=== PATIENT | male | born 1940 | race Caucasian/White ===

== ENCOUNTER 2018-08-30 15:10 | Emergency (ER) | payer MEDICARE, SELFPAY ==
[2018-08-30] VITALS (20 sets, daily range): BP systolic 121–164; BP diastolic 48–67; PULSE 53–68; RESP 10–20; TEMP 37; O2SAT 92–97
--- NOTE | 2018-08-30 15:29 | DI.RAD_ITS ---
SYMPTOMS/DIAGNOSIS: CHEST PAIN, ? ACUTE DISEASE PA AND LATERAL CHEST: Comparison is made with September,. The heart size is within normal limits. The aorta shows calcification but appears normal in diameter. The lungs appear clear. No infiltrate, effusion or pulmonary edema is seen. There is an old right 4th rib fracture. No pneumothorax is seen. There are degenerative changes in the spine. IMPRESSION: No acute abnormality.
[2018-08-30 15:39] LABS: Abs Immature Grans 0.01 k/cumm (0.0-0.09); Absolute Basophil Count 0.03 k/cumm (0.0-0.2); Absolute Eosinophil Count 0.34 k/cumm (0.0-0.7); Absolute Lymphocyte Count 2.07 k/cumm (1.2-3.4); Absolute Monocyte Count 0.66 k/cumm (0.11-0.7); Absolute Neutrophil Count 4.69 k/cumm (1.2-6.7); Basophils % 0.4; Eosinophils % 4.4; HCT 38.8 % (40.0-50.0); HGB 12.6 g/dL (13.5-17.5); Immature Grans % 0.1; Lymphocytes % 26.5; Mean Corp. HGB Concentration 32.5 g/dL (32.0-36.0); Mean Corpuscular Hemoglobin 32.6 pg (27.0-33.0); Mean Corpuscular Volume 100.5 fL (80-95); Mean Platelet Volume 10.8 fL (8.0-11.0); Monocytes % 8.5; Neutrophils % 60.1; Platelet Count 190 x1000/uL (130-400); RBC 3.86 m/cumm (4.50-6.00); RBC Distribution Width 12.8 % (11.8-14.1)
[2018-08-30 16:01] LABS: ALT 23 U/L (12-78); AST 29 U/L (15-37); Alkaline Phosphatase 78 U/L (46-116); Anion Gap 7.4 mmol/L (3-11); BUN 19 mg/dL (7-18); Bilirubin, Total 0.6 mg/dL (0.2-1.0); CO2 29.6 mmol/L (21.0-32.0); CREATININE 1.12 mg/dL (0.70-1.30); Calcium 8.8 mg/dL (8.5-10.1); Chloride 108 mmol/L (98-107); Glucose 113 mg/dL (70-100); Potassium 4.8 mmol/L (3.5-5.1); Sodium 145 mmol/L (136-145); Total Protein 7.4 g/dL (6.4-8.2)
--- NOTE | 2018-08-30 16:08 | ED.GENADUL_ITS ---
Discharge Plan Disposition Patient Disposition: HOME Condition: Improving Discharge Details Chief Complaint: Chest Pain Clinical Impression: Rib pain on right side Primary Care Provider: Jadyn Steen ED Provider: Edith Riley Home Meds and New Rx's Prescriptions: Continued ascorbic acid (vitamin C) [Vitamin C] 1,000 MG tablet 1 tab PO DAILY RF: 0 citalopram 10 MG tablet 1 mg PO DAILY RF: 0 lisinopril 20 MG tablet 20 mg PO DAILY RF: 0 clopidogrel [Plavix] 75 MG tablet 75 mg PO DAILY RF: 0 sulfadiazine 500 MG tablet 500 mg PO DIRECTED RF: 0 aspirin [Aspir-Low] 81 MG tablet,delayed release (DR/EC) 1 tab PO DAILY RF: 0 simvastatin [Zocor] 40 MG tablet 40 mg PO HS RF: 0 folic acid 1 MG tablet 1 mg PO DAILY RF: 0 gabapentin 100 MG capsule 100 mg PO DIRECTED RF: 0 metoprolol tartrate 25 MG tablet 25 mg PO DAILY RF: 0 tamsulosin [Flomax] 0.4 mg Capsule 0.4 mg PO DAILY RF: 0 finasteride 1 mg Tablet PO DAILY RF: 0 Discharge Instructions Instructions: Chest Wall Pain (ED) Additional Instructions: Alternate ice and heat to the affected area several times daily for 20 minutes at a time. Take the Valium as needed and directed for pain and/or sleep. Call your primary care doctor tomorrow to schedule a follow-up appointment for reevaluation. Return immediately to the emergency department any acute worsening or new concerning symptoms. Discharge Data Discharge Physician: Edith Riley Medical Decision Making 78-year-old male with a history of HI, hypertension, hyperlipidemia and 2 cardiac stents who presents with right sided rib pain for the past 3 months. Pain worse with movement. Denies any other associated symptoms. Admits to frequently snowblowing, and a possible injury when putting his motorcycle on a stand recently. Patient had a complaint of chest pain on arrival so an EKG and cardiac workup was ordered considering his age and cardiac history. Patient does not have any complaint of anterior left-sided chest pain or shortness of breath but rather a localized area of right-sided rib pain. EKG notes a rate of 55, sinus bradycardia, no acute ST elevation or depression. QTc 436. QRS 100. Patient has no tenderness to palpation of his ribs but clearly has pain with moving positions in the bed which appears muscular skeletal. He has no rash or evidence of injury to his chest or ribs. He has no right upper quadrant or any other abdominal tenderness making an acute abdominal process such as cholecystitis unlikely. Differential diagnosis includes muscle strain, rib fracture. Doubt shingles as his pain is been present for 3 months and would suspect a rash which have developed by now. His history does not appear consistent with a cardiac or pulmonary etiology as his pain is worse with movement and denies any complaint of shortness of breath, fever or cough. He has no DVT/PE risk factors making PE unlikely. Labs reviewed and notes a normal white blood cell count, normal troponin. Chest x-ray reviewed and negative. Discussed with patient that it appears his pain may be musculoskeletal. Discussed obtaining dedicated rib films but he agrees that this is not necessary at this time. Patient states he feels good to go home. Will send home with 3 tabs of Valium to help with pain/turning while sleeping as he states this is when his pain is uncomfortable. He is declining any narcotic pain medication. He takes gabapentin at home for chronic back pain. Patient is instructed to call his primary care doctor for reevaluation and to return here at any time if worse. Medical Records Medical records reviewed: Yes I reviewed the patient's medical records. Imaging Data Radiologic Study: Radiologist's impression: XR Chest, 2 Views EXAM DATE/TIME: 08/30/2018 3:30 PM CLINICAL HISTORY: 78 years old, male; Pain; Chest pain; Right-sided chest pain TECHNIQUE: XR of the chest, 2 views. COMPARISON: CR CHEST 2 VIEWS PA,LAT 09/08/2010 1:36 PM FINDINGS: Lungs: Unremarkable. No consolidation. Pleural space: Unremarkable. No pleural effusion. No pneumothorax. Heart/Mediastinum: Unremarkable. No cardiomegaly. Bones/joints: Unremarkable. IMPRESSION: No acute findings. Lab Data Lab results reviewed: Yes I reviewed the patient's lab results. Laboratory Tests Range/Units 08/30/18 08/30/18 15:30 15:30 WBC (4.4-10.8) k/cumm 7.80 RBC (4.50-6.00) m/cumm 3.86 L Hgb (13.5-17.5) g/dL 12.6 L Hct (40.0-50.0) % 38.8 L MCV (80-95) fL 100.5 H MCH (27.0-33.0) pg 32.6 MCHC (32.0-36.0) g/dL 32.5 RDW (11.8-14.1) % 12.8 Plt Count (130-400) x1000/uL 190 MPV (8.0-11.0) fL 10.8 Immature Gran % 0.1 Neutrophils % 60.1 Lymphocytes % 26.5 Monocytes % 8.5 Eosinophils % 4.4 Basophils % 0.4 Absolute Neutrophils (1.2-6.7) k/cumm 4.69 Absolute Lymphocytes (1.2-3.4) k/cumm 2.07 Absolute Monocytes (0.11-0.7) k/cumm 0.66 Absolute Eosinophils (0.0-0.7) k/cumm 0.34 Absolute Basophils (0.0-0.2) k/cumm 0.03 Sodium (136-145) mmol/L 145 Potassium (3.5-5.1) mmol/L 4.8 Chloride (98-107) mmol/L 108 H Carbon Dioxide (21.0-32.0) mmol/L 29.6 Anion Gap (3-11) mmol/L 7.4 BUN (7-18) mg/dL 19 H Creatinine (0.70-1.30) mg/dL 1.12 Estimated GFR/1.73 m2 (mL/min/1.73m2) >= 60.00 Glucose (70-100) mg/dL 113 H Calcium (8.5-10.1) mg/dL 8.8 Magnesium (1.8-2.4) mg/dL 2.0 Total Bilirubin (0.2-1.0) mg/dL 0.6 AST (15-37) U/L 29 ALT (12-78) U/L 23 Alkaline Phosphatase (46-116) U/L 78 Troponin I (0.00-0.06) ng/mL < 0.02 Total Protein (6.4-8.2) g/dL 7.4 Albumin (3.4-5.0) g/dL 4.0 ECG Data Attestation: I personally reviewed and interpreted this ECG (s) as follows: Interpretation: 1516 --55, sinus bradycardia, no acute no acute?elevation or depression. QTc 436. QRS 100. HPI General Mode of arrival: ambulatory . Date/Time Provider Initiated Documentation: 08/30/18 15:27 . Limitations to Documentation: no limitations . Information obtained by: patient . HPI Narrative: Patient is a 78-year-old male with a history of depression, hypertension, myocardial infarction, hyperlipidemia and coronary artery stents who presents with right Sastry pain for the past 3 months. Patient states the pain is been daily, intermittent, worse with movement. Patient states he does a lot of snowblowing recently as well as he recently put a motorcycle on a stand and feels like he may have pulled a muscle. He denies any worsening of pain with eating, deep breath. He denies any fever, cough, rash, anterior chest pain, shortness of breath, abdominal pain, nausea, vomiting, diarrhea, urinary symptoms, recent antibiotics or recent hospital admission. Related Data Home Medications Medication Instructions Recorded Confirmed ascorbic acid (vitamin C) [Vitamin 1 tab PO DAILY 06/18/17 08/30/18 C] aspirin [Aspir-Low] 1 tab PO DAILY 06/18/17 08/30/18 citalopram 1 mg PO DAILY 06/18/17 08/30/18 clopidogrel [Plavix] 75 mg PO DAILY 06/18/17 08/30/18 folic acid 1 mg PO DAILY 06/18/17 08/30/18 gabapentin 100 mg PO DIRECTED 06/18/17 08/30/18 lisinopril 20 mg PO DAILY 06/18/17 08/30/18 metoprolol tartrate 25 mg PO DAILY 06/18/17 08/30/18 simvastatin [Zocor] 40 mg PO HS 06/18/17 08/30/18 sulfadiazine 500 mg PO DIRECTED 06/18/17 08/30/18 finasteride mg PO DAILY 08/30/18 tamsulosin [Flomax] 0.4 mg PO DAILY 08/30/18 08/30/18 Allergies Allergy/AdvReac Type Severity Reaction Status Date / Time No Known Allergies Allergy Unverified 06/18/17 16:53 General Stated Complaint: Chest Pain RUPAL: 2 Review of Systems Review of Systems All systems reviewed & are unremarkable except as noted in HPI and below Constitutional Reports as per HPI, Denies chills and Denies fever(s) Eyes Denies blurry vision ENT Denies dizziness, Denies sore throat and Denies throat swelling Cardiovascular Denies chest pain and Denies dyspnea Respiratory Denies cough and Denies dyspnea Gastrointestinal Denies abdominal pain, Denies diarrhea and Denies vomiting Genitourinary Denies hematuria and Denies dysuria Musculoskeletal Denies back pain, Denies numbness and Reports other (Right-sided rib pain) Integumentary/Breasts Denies lesions and Denies rash Neurologic Denies dizziness, Denies focal weakness and Denies numbness Allergic/Immunologic Denies throat swelling [facility] Medical History Hyperlipemia (Acute) Depression (Chronic) HTN (hypertension) (Chronic) Myocardial infarction (Chronic) Surgical History History of coronary artery stent placement (Chronic) Social History Smoking/Tobacco Use Status: Former Tobacco Use alcohol intake: current alcohol intake frequency: a few times a month substance use type: does not use Exam Const General: cooperative, healthy appearing and no acute distress HENMT Head: normal to inspection Face and sinus: normal facial exam Eyes General: appearance normal, both eyes and all related structures EOM: EOM intact bilaterally Neck Neck: normal visual inspection and No submandibular swelling Lymphatic: no lymphadenopathy noted Chest Chest: normal inspection of the chest and no tenderness Chest/axillae images: 1. Area of pain with any movement while moving on stretcher, sitting up and laying down. No tenderness to palpation, rash, erythema or trauma. Resp Effort & Inspection: normal respiratory effort and able to speak in complete sentences Auscultation: clear to auscultation bilaterally Cardio Rate: regular rate Rhythm: regular rhythm GI Inspection: normal to inspection Palpation: soft, not firm, not rigid and nontender Auscultation: normal bowel sounds Male General Exam: Yes normal external exam Skin General skin exam: no rashes or lesions noted Neuro General: alert, awake and oriented x3 Cognition: normal cognition Speech: speech normal Motor: muscle tone normal throughout Sensory Exam: no sensory deficits noted Extrem General: normal to inspection, full ROM and no edema Psych Appearance: grossly normal Mental Status: mental status grossly normal Speech and Movement: speech and movement normal Affect: normal affect Course Vital Signs Temperature 98.6 F 08/30/18 15:14 Pulse 60 08/30/18 15:14 Respiratory Rate 20 08/30/18 15:14 Blood Pressure 160/59 H 08/30/18 15:14 Pulse Oximetry 97 08/30/18 15:14 Temperature 98.6 F 08/30/18 15:14 Temperature Source Temporal Artery Scan 08/30/18 15:14 Pulse 60 08/30/18 15:14 Respiratory Rate 20 08/30/18 15:14 Respiratory Effort Non-Labored 08/30/18 15:19 Blood Pressure 160/59 H 08/30/18 15:14 Blood Pressure Position Supine 08/30/18 15:14 Pulse Oximetry 97 08/30/18 15:14 Oxygen Delivery Method Room Air 08/30/18 15:14 Oxygen Flow Rate 0 08/30/18 15:14 Pain Level 0 08/30/18 15:14 Lab/Test Results Lab/Test Results: Laboratory Tests Range/Units 08/30/18 15:30 WBC (4.4-10.8) k/cumm 7.80 RBC (4.50-6.00) m/cumm 3.86 L Hgb (13.5-17.5) g/dL 12.6 L Hct (40.0-50.0) % 38.8 L MCV (80-95) fL 100.5 H MCH (27.0-33.0) pg 32.6 MCHC (32.0-36.0) g/dL 32.5 RDW (11.8-14.1) % 12.8 Plt Count (130-400) x1000/uL 190 MPV (8.0-11.0) fL 10.8 Immature Gran % 0.1 Neutrophils % 60.1 Lymphocytes % 26.5 Monocytes % 8.5 Eosinophils % 4.4 Basophils % 0.4 Absolute Neutrophils (1.2-6.7) k/cumm 4.69 Absolute Lymphocytes (1.2-3.4) k/cumm 2.07 Absolute Monocytes (0.11-0.7) k/cumm 0.66 Absolute Eosinophils (0.0-0.7) k/cumm 0.34 Absolute Basophils (0.0-0.2) k/cumm 0.03
[2018-08-30 16:14] LABS: Troponin I < 0.02 ng/mL (0.00-0.06)
--- NOTE | 2018-08-30 16:17 | DI.VRAD_ITS ---
EXAM: XR Chest, 2 Views EXAM DATE/TIME: 08/30/2018 3:30 PM CLINICAL HISTORY: 78 years old, male; Pain; Chest pain; Right-sided chest pain TECHNIQUE: XR of the chest, 2 views. COMPARISON: CR CHEST 2 VIEWS PA,LAT 09/08/2010 1:36 PM FINDINGS: Lungs: Unremarkable. No consolidation. Pleural space: Unremarkable. No pleural effusion. No pneumothorax. Heart/Mediastinum: Unremarkable. No cardiomegaly. Bones/joints: Unremarkable. IMPRESSION: No acute findings. Dictated and Authenticated by: Arnie Antonio MD. Ordering:THOMAS Sharma MD
[2018-08-30] MEDS: Diazepam 5 MG TAB 15 MG PO (17:25)
== END 2018-08-30 17:35 | disposition home or self-care (01) ==
PROVIDERS: Emergency Provider Physician Assistant; PCP Family Medicine
DX: R07.81 Pleurodynia (principal); I10 Essential (primary) hypertension; I25.2 Old myocardial infarction; Z95.5 Presence of coronary angioplasty implant and graft
CPT/HCPCS: 36415; 80053; 93005; 99285; 71046; 83735; 84484; 85025; 93010

== ENCOUNTER 2018-09-27 11:55 | Emergency (ER) | payer MEDICARE, SELFPAY ==
[2018-09-27] VITALS (20 sets, daily range): BP systolic 97–192; BP diastolic 37–101; PULSE 55–67; RESP 14–25; O2SAT 96–100
--- NOTE | 2018-09-27 12:14 | DI.CT_ITS ---
SYMPTOMS/DIAGNOSIS: S/P TRAUMA, ? SHOULDER/RIB FX, ABD INJURY CT SCAN OF THE ABDOMEN AND PELVIS AND CT RECONSTRUCTIONS OF THE LUMBAR SPINE: The liver is normal in size with normal enhancement. No laceration is seen. The portal, superior mesenteric and splenic veins are patent. The gallbladder is negative. There is no biliary ductal dilatation. The pancreas and peripancreatic soft tissues are unremarkable. The spleen is normal in size with normal enhancement. No evidence of a laceration is seen. The adrenal glands are unremarkable. The kidneys show normal and symmetric enhancement. There are a few tiny hypodensities seen within the left kidney. They are too small for further characterization but they likely reflect small cysts. The urinary bladder is intact. The reproductive organs are unremarkable. There is patient motion artifact present. There is atherosclerosis of the abdominal aorta but no aneurysmal dilatation is seen. No significant abdominal or pelvic adenopathy, ascites or pneumoperitoneum is present. There are degenerative changes seen in the lumbar spine. Ankylosis of the left sacroiliac joint is noted. CT reconstructions of the lumbar spine were obtained. There are no acute fractures or subluxations seen in the lumbar spine. The bowel shows no evidence of obstruction or inflammation. There is diverticulosis seen in the colon. No evidence of an acute appendicitis are present. IMPRESSION: 1. No evidence of an acute intra-abdominal or pelvic abnormality. 2. No evidence of a lumbar spine fracture. CT SCAN OF THE CHEST AND CT RECONSTRUCTIONS OF THE THORACIC SPINE: There is atherosclerosis of the thoracic aorta but no aneurysmal dilatation is present. The heart appears mildly enlarged. No significant pericardial effusion is seen. Coronary artery calcifications are present. There is patient motion artifact. No significant thoracic adenopathy is seen. No pleural effusion is present. Pulmonary emphysematous changes are present. There is no evidence of a pneumothorax. No focal consolidating infiltrates are seen. The tracheobronchial tree is unremarkable. Mild dependent atelectatic changes are seen in the lung bases. CT reconstructions of the thoracic spine were obtained. There are degenerative changes seen at multiple levels of the thoracic spine. No acute fractures or subluxations in the thoracic spine are identified. No displaced rib fractures are seen. IMPRESSION: 1. No acute thoracic abnormality. 2. No evidence of thoracic spine fracture. The findings were discussed with the emergency department on the date of the examination.
--- NOTE | 2018-09-27 12:14 | DI.CT_ITS ---
SYMPTOMS/DIAGNOSIS: S/P FALL, ? ACUTE PROCESS CT BRAIN: Noncontrast examination. No priors. The ventricles and sulci are consistent with the patient's age. There are areas of decreased attenuation in the white matter consistent with small vessel ischemic disease. 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 The ventricles are intact. The basilar cisterns are patent. No acute midline shift or mass effect is identified. There is a small hyperdense extra-axial collection adjacent to the left occipital lobe (series 2, image 24). It measures 1.5 cm transverse by 0.5 cm AP. This may represent a small extra-axial hemorrhage. No other evidence of intracranial hemorrhage is seen. The calvarium is intact. No skull fracture is seen. There is mild mucosal thickening seen in the right maxillary sinus. The remaining visualized paranasal sinuses are clear. No fluid levels are seen. The mastoid air cells are well pneumatized. IMPRESSION: 1. 1.5 cm extra-axial hyperdense area adjacent to the left occipital lobe. This may represent a small subdural hematoma. 2. No evidence of intraparenchymal hemorrhage or skull fracture. CT SCAN OF THE CERVICAL SPINE: Multiple contiguous axial images of the cervical spine were obtained. Sagittal and coronal reformatted images were evaluated on the [employer] workstation. There are no priors for comparison. There is some patient motion artifact present. No acute fractures or subluxations in the cervical spine are identified. There are moderate degenerative changes present throughout the cervical spine. No significant prevertebral soft tissue swelling is seen. IMPRESSION: No acute fractures or subluxations in the cervical spine. The findings were discussed with the emergency department on the date of the examination.
--- NOTE | 2018-09-27 12:14 | DI.RAD_ITS ---
SYMPTOMS/DIAGNOSIS: S/P FALL, ? ACUTE FRACTURE LEFT HUMERUS: Three views. There is some motion artifact particularly proximally. No definite acute fracture or dislocation is seen. Well corticated osseous densities are seen adjacent to both the medial and lateral epicondyles. No radiopaque foreign bodies are seen in the soft tissues. IMPRESSION: No definite acute fracture or dislocation of the left humerus. RIGHT HUMERUS: Three views. No acute fracture or dislocation is seen. Portions of the proximal humerus are less well visualized due to overlying soft tissue. No radiopaque foreign bodies are seen in the soft tissues. IMPRESSION: No definite acute fracture or dislocation.
[2018-09-27 12:27] LABS: Abs Immature Grans 0.01 k/cumm (0.0-0.09); Absolute Basophil Count 0.02 k/cumm (0.0-0.2); Absolute Eosinophil Count 0.23 k/cumm (0.0-0.7); Absolute Lymphocyte Count 1.83 k/cumm (1.2-3.4); Absolute Monocyte Count 0.73 k/cumm (0.11-0.7); Absolute Neutrophil Count 5.34 k/cumm (1.2-6.7); Basophils % 0.2; Eosinophils % 2.8; HCT 40.4 % (40.0-50.0); HGB 13.2 g/dL (13.5-17.5); Immature Grans % 0.1; Lymphocytes % 22.4; Mean Corp. HGB Concentration 32.7 g/dL (32.0-36.0); Mean Corpuscular Hemoglobin 32.4 pg (27.0-33.0); Mean Corpuscular Volume 99.3 fL (80-95); Monocytes % 8.9; Neutrophils % 65.6; Platelet Count 189 x1000/uL (130-400); RBC 4.07 m/cumm (4.50-6.00); RBC Distribution Width 12.5 % (11.8-14.1); White Blood Cell Count 8.16 k/cumm (4.4-10.8)
[2018-09-27 12:44] LABS: ALT 23 U/L (12-78); AST 24 U/L (15-37); Albumin 4.1 g/dL (3.4-5.0); Alkaline Phosphatase 77 U/L (46-116); BUN 20 mg/dL (7-18); Bilirubin, Total 0.6 mg/dL (0.2-1.0); CREATININE 1.31 mg/dL (0.70-1.30); Calcium 9.3 mg/dL (8.5-10.1); Chloride 107 mmol/L (98-107); Estimated GFR 52.92 (mL/min/1.73m2); Glucose 115 mg/dL (70-100); Magnesium 1.7 mg/dL (1.8-2.4); Potassium 4.3 mmol/L (3.5-5.1); Sodium 143 mmol/L (136-145); Total Protein 7.4 g/dL (6.4-8.2)
[2018-09-27 12:45] LABS: Troponin I < 0.02 ng/mL (0.00-0.06)
[2018-09-27] MEDS: Omnipaque 350 MG/ML 100 ML BTL IJ (13:04)
[2018-09-27] MEDS: Normal Saline 250 ML 500 ML IV (13:13)
[2018-09-27 13:20] LABS: Bilirubin Negative (Negative); Blood Negative (Negative); Clarity Clear; Glucose Negative (Negative); Ketones Trace mg/dL (Negative); Leukocyte Esterase Negative (Negative); Nitrite Negative (Negative); Urobilinogen 0.2 EU/dL (Up TO 0.2)
--- NOTE | 2018-09-27 13:21 | W.ED.GENAD ---
Discharge Plan Disposition Patient Dis[facility] Condition: Serious Discharge Details Chief Complaint: Trauma Clinical Impression: Acute subdural hematoma, Fall, Bilateral shoulder pain, Bilateral arm pain Reason For Visit: RODGER Primary Care Provider: Jadyn Steen ED Provider: Edith Riley Home Meds and New Rx's Prescriptions: No Action ascorbic acid (vitamin C) [Vitamin C] 1,000 MG tablet 1 tab PO DAILY RF: 0 citalopram 10 MG tablet 1 mg PO DAILY RF: 0 lisinopril 20 MG tablet 20 mg PO DAILY RF: 0 clopidogrel [Plavix] 75 MG tablet 75 mg PO DAILY RF: 0 sulfadiazine 500 MG tablet 500 mg PO DIRECTED RF: 0 aspirin [Aspir-Low] 81 MG tablet,delayed release (DR/EC) 1 tab PO DAILY RF: 0 simvastatin [Zocor] 40 MG tablet 40 mg PO HS RF: 0 folic acid 1 MG tablet 1 mg PO DAILY RF: 0 gabapentin 100 MG capsule 100 mg PO DIRECTED RF: 0 metoprolol tartrate 25 MG tablet 25 mg PO DAILY RF: 0 tamsulosin [Flomax] 0.4 mg Capsule 0.4 mg PO DAILY RF: 0 finasteride 1 mg Tablet PO DAILY RF: 0 Discharge Data Discharge Date/Time-TO BE ENTERED AT DEPARTURE: 09/27/18 14:15 Medical Decision Making 78-year-old male with a history of hypertension, high cholesterol, PR with one cardiac stent who presents to the ED status post fall. Patient does not recall the events of the fall but EMS states that a family member called for evaluation after a fall. Patient was found in bed at home. Caregiver for who has dementia who arrived to ED states that patient states that he was walking in the garage and fell. She states patient takes care of his and that he is normally alert and oriented x3. Patient appears anxious and is complaining of pain in his bilateral clavicles, shoulders and upper arms. He denies any chest pain, abdominal pain, neck pain, back pain or headache. He has tenderness to palpation of his bilateral clavicles and bilateral upper arms but no obvious deformity noted. Neurovascularly intact. C-spine/T-spine/L-spine nontender. He has a superficial posterior occipital laceration, superficial, sutures or morelia not indicated. His chest and abdomen is nontender. Will place an IV, bolus IV fluids, labs, urinalysis, CT head/C-spine/T-spine/L-spine/chest/abdomen and pelvis as well as bilateral humerus x-rays. 1300 --labs and imaging reviewed. Labs unremarkable. Troponin negative. Urinalysis notes 3-5 WBCs negative leukocyte esterase and negative nitrate, urine culture sent. CT head notes a 1.5 cm subdural hematoma. Remainder of CT imaging negative. 1315 --d/w [facility] Trauma - accepts pt for transfer. Informed that patient is seeming to be anxious and complaining of pain in his upper arms. Agreeable with plan for dose of 1-2 mg morphine. Patient is the caregiver for his at home who has dementia. There is no family or friends available. This was discussed with care management they have arranged for caregivers to stay with at home. [facility] transfer center was notified that we were unable to confirm patient's tetanus status here and he did not receive a tetanus shot here. They will notify the ED. Medical Records Medical records reviewed: Yes I reviewed the patient's medical records. Imaging Data Radiologic Study: Radiologist's impression: CT BRAIN: Noncontrast examination. No priors. The ventricles and sulci are consistent with the patient's age. There are areas of decreased attenuation in the white matter consistent with small vessel ischemic disease. 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 The ventricles are intact. The basilar cisterns are patent. No acute midline shift or mass effect is identified. There is a small hyperdense extra-axial collection adjacent to the left occipital lobe (series 2, image 24). It measures 1.5 cm transverse by 0.5 cm AP. This may represent a small extra-axial hemorrhage. No other evidence of intracranial hemorrhage is seen. The calvarium is intact. No skull fracture is seen. There is mild mucosal thickening seen in the right maxillary sinus. The remaining visualized paranasal sinuses are clear. No fluid levels are seen. The mastoid air cells are well pneumatized. IMPRESSION: 1. 1.5 cm extra-axial hyperdense area adjacent to the left occipital lobe. This may represent a small subdural hematoma. 2. No evidence of intraparenchymal hemorrhage or skull fracture. CT SCAN OF THE CERVICAL SPINE: Multiple contiguous axial images of the cervical spine were obtained. Sagittal and coronal reformatted images were evaluated on the Siemens workstation. There are no priors for comparison. There is some patient motion artifact present. No acute fractures or subluxations in the cervical spine are identified. There are moderate degenerative changes present throughout the cervical spine. No significant prevertebral soft tissue swelling is seen. IMPRESSION: No acute fractures or subluxations in the cervical spine. Patient Name: LOC STEWART #: [id number]: ER Ordering Provider: Edith Riley DOAccount #: [id number]: PRE ER Primary Care Provider: Jadyn Steen M.D.Date of Exam: 09/27/18Sex: M : 1940Age: 78 CT SCAN OF THE ABDOMEN AND PELVIS AND CT RECONSTRUCTIONS OF THE LUMBAR SPINE: The liver is normal in size with normal enhancement. No laceration is seen. The portal, superior mesenteric and splenic veins are patent. The gallbladder is negative. There is no biliary ductal dilatation. The pancreas and peripancreatic soft tissues are unremarkable. The spleen is normal in size with normal enhancement. No evidence of a laceration is seen. The adrenal glands are unremarkable. The kidneys show normal and symmetric enhancement. There are a few tiny hypodensities seen within the left kidney. They are too small for further characterization but they likely reflect small cysts. The urinary bladder is intact. The reproductive organs are unremarkable. There is patient motion artifact present. There is atherosclerosis of the abdominal aorta but no aneurysmal dilatation is seen. No significant abdominal or pelvic adenopathy, ascites or pneumoperitoneum is present. There are degenerative changes seen in the lumbar spine. Ankylosis of the left sacroiliac joint is noted. CT reconstructions of the lumbar spine were obtained. There are no acute fractures or subluxations seen in the lumbar spine. The bowel shows no evidence of obstruction or inflammation. There is diverticulosis seen in the colon. No evidence of an acute appendicitis are present. IMPRESSION: 1. No evidence of an acute intra-abdominal or pelvic abnormality. 2. No evidence of a lumbar spine fracture. CT SCAN OF THE CHEST AND CT RECONSTRUCTIONS OF THE THORACIC SPINE: There is atherosclerosis of the thoracic aorta but no aneurysmal dilatation is present. The heart appears mildly enlarged. No significant pericardial effusion is seen. Coronary artery calcifications are present. There is patient motion artifact. No significant thoracic adenopathy is seen. No pleural effusion is present. Pulmonary emphysematous changes are present. There is no evidence of a pneumothorax. No focal consolidating infiltrates are seen. The tracheobronchial tree is unremarkable. Mild dependent atelectatic changes are seen in the lung bases. CT reconstructions of the thoracic spine were obtained. There are degenerative changes seen at multiple levels of the thoracic spine. No acute fractures or subluxations in the thoracic spine are identified. No displaced rib fractures are seen. IMPRESSION: 1. No acute thoracic abnormality. 2. No evidence of thoracic spine fracture. LEFT HUMERUS: Three views. There is some motion artifact particularly proximally. No definite acute fracture or dislocation is seen. Well corticated osseous densities are seen adjacent to both the medial and lateral epicondyles. No radiopaque foreign bodies are seen in the soft tissues. IMPRESSION: No definite acute fracture or dislocation of the left humerus. RIGHT HUMERUS: Three views. No acute fracture or dislocation is seen. Portions of the proximal humerus are less well visualized due to overlying soft tissue. No radiopaque foreign bodies are seen in the soft tissues. IMPRESSION: No definite acute fracture or dislocation. Lab Data Lab results reviewed: Yes I reviewed the patient's lab results. 09/27/18 13:14 Urine - Reflex from Ua Urine Culture - Pending Laboratory Tests Range/Units 09/27/18 09/27/18 09/27/18 12:15 12:15 13:14 WBC (4.4-10.8) k/cumm 8.16 RBC (4.50-6.00) m/cumm 4.07 L Hgb (13.5-17.5) g/dL 13.2 L Hct (40.0-50.0) % 40.4 MCV (80-95) fL 99.3 H MCH (27.0-33.0) pg 32.4 MCHC (32.0-36.0) g/dL 32.7 RDW (11.8-14.1) % 12.5 Plt Count (130-400) x1000/uL 189 MPV (8.0-11.0) fL 11.0 Immature Gran % 0.1 Neutrophils % 65.6 Lymphocytes % 22.4 Monocytes % 8.9 Eosinophils % 2.8 Basophils % 0.2 Absolute Neutrophils (1.2-6.7) k/cumm 5.34 Absolute Lymphocytes (1.2-3.4) k/cumm 1.83 Absolute Monocytes (0.11-0.7) k/cumm 0.73 H Absolute Eosinophils (0.0-0.7) k/cumm 0.23 Absolute Basophils (0.0-0.2) k/cumm 0.02 Sodium (136-145) mmol/L 143 Potassium (3.5-5.1) mmol/L 4.3 Chloride (98-107) mmol/L 107 Carbon Dioxide (21.0-32.0) mmol/L 25.0 Anion Gap (3-11) mmol/L 11.0 BUN (7-18) mg/dL 20 H Creatinine (0.70-1.30) mg/dL 1.31 H Estimated GFR/1.73 m2 (mL/min/1.73m2) 52.92 Glucose (70-100) mg/dL 115 H Calcium (8.5-10.1) mg/dL 9.3 Magnesium (1.8-2.4) mg/dL 1.7 L Total Bilirubin (0.2-1.0) mg/dL 0.6 AST (15-37) U/L 24 ALT (12-78) U/L 23 Alkaline Phosphatase (46-116) U/L 77 Troponin I (0.00-0.06) ng/mL < 0.02 Total Protein (6.4-8.2) g/dL 7.4 Albumin (3.4-5.0) g/dL 4.1 Urine Color (Yellow) Yellow Urine Clarity Clear Urine pH (5-8) 7.0 Ur Specific [place] (1.005-1.025) 1.020 Urine Protein (Negative) mg/dL 30 H Urine Ketones (Negative) mg/dL Trace H Urine Blood (Negative) Negative Urine Nitrite (Negative) Negative Urine Bilirubin (Negative) Negative Urine Urobilinogen (Up TO 0.2) EU/dL 0.2 Ur Leukocyte Esterase (Negative) Negative Urine RBC (0-2) Negative Urine WBC (0-5) HPF 3-5 Ur Epithelial Cells (Negative) HPF Rare Urine Crystals (Negative) HPF Negative Urine Bacteria (Negative) HPF Moderate Urine Casts (Negative) LPF 0-2 hyaline Urine Mucus (Negative) Trace Urine Other (Negative) Few renal Ur Culture Indicated? Yes Urine Glucose (Negative) mg/dL Negative ECG Data Attestation: I personally reviewed and interpreted this ECG (s) as follows: Interpretation: Rate of 53, sinus bradycardia, PVCs. T wave inversion in V2 and V3. QTc 449. QRS 102. HPI General Mode of arrival: EMS. Date/Time Provider Initiated Documentation: 09/27/18 12:10. Limitations to Documentation: no limitations. Information obtained by: patient. HPI Narrative: Patient is a 78-year-old male with history hypertension, high cholesterol, PR with one cardiac stent who presents status post fall. Patient is unable to recall any events of the fall. EMS states that patient lives at home with his who has dementia. Apparently patient may have fallen while he was walking and then walked back up to his bed and laid down. EMS states they found him laying in his bed. Patient is complaining of pain in both of his arms extending from his clavicles, shoulders upper arms and forearms. He had complained of chest pain for EMS but denies this in the ER. He denies any abdominal pain, neck pain, back pain or hip pain. Related Data Home Medications Medication Instructions Recorded Confirmed ascorbic acid (vitamin C) [Vitamin 1 tab PO DAILY 06/18/17 09/27/18 C] aspirin [Aspir-Low] 1 tab PO DAILY 06/18/17 09/27/18 citalopram 1 mg PO DAILY 06/18/17 09/27/18 clopidogrel [Plavix] 75 mg PO DAILY 06/18/17 09/27/18 folic acid 1 mg PO DAILY 06/18/17 09/27/18 gabapentin 100 mg PO DIRECTED 06/18/17 09/27/18 lisinopril 20 mg PO DAILY 06/18/17 09/27/18 metoprolol tartrate 25 mg PO DAILY 06/18/17 09/27/18 simvastatin [Zocor] 40 mg PO HS 06/18/17 09/27/18 sulfadiazine 500 mg PO DIRECTED 06/18/17 08/30/18 finasteride mg PO DAILY 08/30/18 tamsulosin [Flomax] 0.4 mg PO DAILY 08/30/18 09/27/18 Allergies Allergy/AdvReac Type Severity Reaction Status Date / Time No Known Allergies Allergy Unverified 06/18/17 16:53 General Stated Complaint: Trauma RUPAL: 2 Review of Systems Review of Systems All systems reviewed & are unremarkable except as noted in HPI and below Constitutional Reports as per HPI, Denies chills and Denies fever(s) Eyes Denies blurry vision ENT Denies dizziness, Denies sore throat and Denies throat swelling Cardiovascular Denies chest pain and Denies dyspnea Respiratory Denies cough and Denies dyspnea Gastrointestinal Denies abdominal pain, Denies diarrhea and Denies vomiting Genitourinary Denies hematuria and Denies dysuria Musculoskeletal Denies back pain and Denies numbness Integumentary/Breasts Denies lesions and Denies rash Neurologic Denies dizziness, Denies focal weakness and Denies numbness Allergic/Immunologic Denies throat swelling PFS Social History Smoking and Tabacco status: Former Tobacco Use alcohol intake: current alcohol intake frequency: a few times a month substance use type: does not use Exam Const General: cooperative and anxious Orientation: alert and awake HENMT Head: normal to inspection Head images: 1. 1.5 cm superficial abrasion to right posterior occipital head Ears: hearing grossly normal bilaterally, external ears normal and TM's normal bilaterally General nose exam: external nose normal Face and sinus: normal facial exam Mouth: oral mucosae normal Teeth and gingiva: dentition normal Throat: posterior oropharynx normal Eyes General: appearance normal, both eyes and all related structures Eyelids: eyelids normal Pupils: PERRL EOM: EOM intact bilaterally Neck Neck: normal visual inspection Lymphatic: no lymphadenopathy noted Chest Chest: normal inspection of the chest, normal palpation of entire chest wall and no tenderness Resp Effort & Inspection: normal respiratory effort and able to speak in complete sentences Auscultation: clear to auscultation bilaterally Cardio Rate: regular rate Rhythm: regular rhythm GI Inspection: normal to inspection Palpation: soft, not firm, no guarding, no hepatosplenomegaly, no masses and nontender Auscultation: normal bowel sounds Back/Spine/Pelvis Cervical Spine: No cervical spinal tenderness Thoracic/Lumbar Spine: No thoracic spinal tenderness and No lumbar spinal tenderness Pelvis: no pain with anterior-posterior compression Skin General skin exam: no rashes or lesions noted Neuro General: alert, awake, oriented x3, moves all extremities, no meningeal signs, no focal motor deficits and other (repeating words and phrases) Cranial Nerves: CN's II-XI intact bilaterally Cognition: normal cognition Speech: speech normal Gait: normal gait Motor: muscle tone normal throughout and strength 5/5 throughout Sensory Exam: no sensory deficits noted Extrem Other: Tenderness and pain in bilateral shoulders and upper arms with range of motion. No deformity, edema, ecchymosis, erythema or evidence of trauma. Normal range of motion bilateral hips, knees, ankles and feet without evidence of trauma. Neurovascularly intact. Psych Appearance: grossly normal Mental Status: mental status grossly normal and other Speech and Movement: speech and movement normal Mood: other Affect: anxious affect Thought Process: normal Course Vital Signs Pulse 67 09/27/18 12:06 Respiratory Rate 22 09/27/18 12:06 Blood Pressure 185/71 H 09/27/18 12:06 Pulse Oximetry 99 09/27/18 12:06 Pulse 63 09/27/18 13:02 Respiratory Rate 20 09/27/18 13:02 Respiratory Effort Short of Breath 09/27/18 12:13 Blood Pressure 167/71 H 09/27/18 13:02 Blood Pressure Position Supine 09/27/18 12:06 Pulse Oximetry 97 09/27/18 13:02 Oxygen Delivery Method Room Air 09/27/18 13:02 Oxygen Flow Rate 0 09/27/18 13:02 Lab/Test Results Lab/Test Results: Laboratory Tests Range/Units 09/27/18 09/27/18 12:15 12:15 WBC (4.4-10.8) k/cumm 8.16 RBC (4.50-6.00) m/cumm 4.07 L Hgb (13.5-17.5) g/dL 13.2 L Hct (40.0-50.0) % 40.4 MCV (80-95) fL 99.3 H MCH (27.0-33.0) pg 32.4 MCHC (32.0-36.0) g/dL 32.7 RDW (11.8-14.1) % 12.5 Plt Count (130-400) x1000/uL 189 MPV (8.0-11.0) fL 11.0 Immature Gran % 0.1 Neutrophils % 65.6 Lymphocytes % 22.4 Monocytes % 8.9 Eosinophils % 2.8 Basophils % 0.2 Absolute Neutrophils (1.2-6.7) k/cumm 5.34 Absolute Lymphocytes (1.2-3.4) k/cumm 1.83 Absolute Monocytes (0.11-0.7) k/cumm 0.73 H Absolute Eosinophils (0.0-0.7) k/cumm 0.23 Absolute Basophils (0.0-0.2) k/cumm 0.02 Sodium (136-145) mmol/L 143 Potassium (3.5-5.1) mmol/L 4.3 Chloride (98-107) mmol/L 107 Carbon Dioxide (21.0-32.0) mmol/L 25.0 Anion Gap (3-11) mmol/L 11.0 BUN (7-18) mg/dL 20 H Creatinine (0.70-1.30) mg/dL 1.31 H Estimated GFR/1.73 m2 (mL/min/1.73m2) 52.92 Glucose (70-100) mg/dL 115 H Calcium (8.5-10.1) mg/dL 9.3 Magnesium (1.8-2.4) mg/dL 1.7 L Total Bilirubin (0.2-1.0) mg/dL 0.6 AST (15-37) U/L 24 ALT (12-78) U/L 23 Alkaline Phosphatase (46-116) U/L 77 Troponin I (0.00-0.06) ng/mL < 0.02 Total Protein (6.4-8.2) g/dL 7.4 Albumin (3.4-5.0) g/dL 4.1
[2018-09-27] MEDS: MORPHine 10 MG/ML VIAL 2 MG IVP (13:24)
--- NOTE | 2018-09-27 13:30 | ED.GENADUL_ITS ---
Discharge Plan Disposition Patient Disposition: [facility] Condition: Serious Discharge Details Chief Complaint: Trauma Clinical Impression: Acute subdural hematoma, Fall, Bilateral shoulder pain, Bilateral arm pain Reason For Visit: RODGER Primary Care Provider: Jadyn Steen ED Provider: Edith Riley Home Meds and New Rx's Prescriptions: No Action ascorbic acid (vitamin C) [Vitamin C] 1,000 MG tablet 1 tab PO DAILY RF: 0 citalopram 10 MG tablet 1 mg PO DAILY RF: 0 lisinopril 20 MG tablet 20 mg PO DAILY RF: 0 clopidogrel [Plavix] 75 MG tablet 75 mg PO DAILY RF: 0 sulfadiazine 500 MG tablet 500 mg PO DIRECTED RF: 0 aspirin [Aspir-Low] 81 MG tablet,delayed release (DR/EC) 1 tab PO DAILY RF: 0 simvastatin [Zocor] 40 MG tablet 40 mg PO HS RF: 0 folic acid 1 MG tablet 1 mg PO DAILY RF: 0 gabapentin 100 MG capsule 100 mg PO DIRECTED RF: 0 metoprolol tartrate 25 MG tablet 25 mg PO DAILY RF: 0 tamsulosin [Flomax] 0.4 mg Capsule 0.4 mg PO DAILY RF: 0 finasteride 1 mg Tablet PO DAILY RF: 0 Discharge Data Discharge Date/Time-TO BE ENTERED AT DEPARTURE: 09/27/18 14:15 Medical Decision Making 78-year-old male with a history of hypertension, high cholesterol, LA with one cardiac stent who presents to the ED status post fall. Patient does not recall the events of the fall but EMS states that a family member called for evaluation after a fall. Patient was found in bed at home. Caregiver for who has dementia who arrived to ED states that patient states that he was walking in the garage and fell. She states patient takes care of his and that he is normally alert and oriented x3. Patient appears anxious and is complaining of pain in his bilateral clavicles, shoulders and upper arms. He denies any chest pain, abdominal pain, neck pain, back pain or headache. He has tenderness to palpation of his bilateral clavicles and bilateral upper arms but no obvious deformity noted. Neurovascularly intact. C-spine/T-spine/L-spine nontender. He has a superficial posterior occipital laceration, superficial, sutures or morelia not indicated. His chest and abdomen is nontender. Will place an IV, bolus IV fluids, labs, urinalysis, CT head/C -spine/T-spine/L-spine/chest/abdomen and pelvis as well as bilateral humerus x- rays. 1300 --labs and imaging reviewed. Labs unremarkable. Troponin negative. Urinalysis notes 3-5 WBCs negative leukocyte esterase and negative nitrate, urine culture sent. CT head notes a 1.5 cm subdural hematoma. Remainder of CT imaging negative. 1315 --d/w [facility] - accepts pt for transfer. Informed that patient is seeming to be anxious and complaining of pain in his upper arms. Agreeable with plan for dose of 1-2 mg morphine. Patient is the caregiver for his at home who has dementia. There is no family or friends available. This was discussed with care management they have arranged for caregivers to stay with at home. [facility] transfer center was notified that we were unable to confirm patient's tetanus status here and he did not receive a tetanus shot here. They will no tify the ED. Medical Records Medical records reviewed: Yes I reviewed the patient's medical records. Imaging Data Radiologic Study: Radiologist's impression: CT BRAIN: Noncontrast examination. No priors. The ventricles and sulci are consistent with the patient's age. There are areas of decreased attenuation in the white matter consistent with small vessel ischemic disease. 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 The ventricles are intact. The basilar cisterns are patent. No acute midline shift or mass effect is identified. There is a small hyperdense extra-axial collection adjacent to the left occipital lobe (series 2, image 24). It measures 1.5 cm transverse by 0.5 cm AP. This may represent a s mall extra-axial hemorrhage. No other evidence of intracranial hemorrhage is seen. The calvarium is intact. No skull fracture is seen. There is mild mucosal thickening seen in the right maxillary sinus. The remaining visualized paranasal sinuses are clear. No fluid levels are seen. The mastoid air cells are well pneumatized. IMPRESSION: 1. 1.5 cm extra-axial hyperdense area adjacent to the left occipital lobe. This may represent a small subdural hematoma. 2. No evidence of intraparenchymal hemorrhage or skull fracture. CT SCAN OF THE CERVICAL SPINE: Multiple contiguous axial images of the cervical spine were obtained. Sagittal and coronal reformatted images were evaluated on the Siemens workstation. There are no priors for comparison. There is some patient motion artifact present. No acute fractures or subluxations in the cervical spine are identified. There are moderate degenerative changes present throughout the cervical spine. No significant prevertebral soft tissue swelling is seen. IMPRESSION: No acute fractures or subluxations in the cervical spine. Patient Name: LOC STEWART #: [id number]: ER Ordering Provider: Edith Riley DOAccount #: [id number]: PRE ER Primary Care Provider: Jadyn Steen M.D.Date of Exam: 09/27/18Sex: M : 1940Age: 78 CT SCAN OF THE ABDOMEN AND PELVIS AND CT RECONSTRUCTIONS OF THE LUMBAR SPINE: The liver is normal in size with normal enhancement. No laceration is seen. The portal, superior mesenteric and splenic veins are patent. The gallbladder is negative. There is no biliary ductal dilatation. The pancreas and pe ripancreatic soft tissues are unremarkable. The spleen is normal in size with normal enhancement. No evidence of a laceration is seen. The adrenal glands are unremarkable. The kidneys show normal and symmetric enhancement. There are a few tiny hypodensities seen within the left kidney. They are too small for further characterization but they likely reflect small cysts. The urinary bladder is intact. The reproductive organs are unremarkable. There is patient motion artifact present. There is atherosclerosis of the abdominal aorta but no aneurysmal dilatation is seen. No significant abdominal or pelvic adenopathy, ascites or pneumoperitoneum is present. There are degenerative changes seen in the lumbar spine. Ankylosis of the left sacroiliac joint is noted. CT reconstructions of the lumbar spine were obtained. There are no acute fractures or subluxations seen in the lumbar spine. The bowel shows no evidence of obstruction or inflammation. There is diverticulosis seen in the colon. No evidence of an acute appendicitis are present. IMPRESSION: 1. No evidence of an acute intra-abdominal or pelvic abnormality. 2. No evidence of a lumbar spine fracture. CT SCAN OF THE CHEST AND CT RECONSTRUCTIONS OF THE THORACIC SPINE: There is atherosclerosis of the thoracic aorta but no aneurysmal dilatation is present. The heart appears mildly enlarged. No significant pericardial effusion is seen. Coronary artery calcifications are present. There is patient motion artifact. No significant thoracic adenopathy is seen. No pleural effusion is present. Pulmonary emphysematous changes are present. There is no evidence of a pneumothorax. No focal consolidating infiltrates are seen. The tracheobronchial tree is unremarkable. Mild dependent atelectatic changes are seen in the lung bases. CT reconstructions of the thoracic spine were obtained. There are degenerative changes seen at multiple levels of the thoracic spine. No acute fractures or subluxations in the thoracic spine are identified. No displaced rib fractures are seen. IMPRESSION: 1. No acute thoracic abnormality. 2. No evidence of thoracic spine fracture. LEFT HUMERUS: Three views. There is some motion artifact particularly proximally. No definite acute fracture or dislocation is seen. Well corticated osseous densities are seen adjacent to both the medial and lateral epicondyles. No radiopaque foreign bodies are seen in the soft tissues. IMPRESSION: No definite acute fracture or dislocation of the left humerus. RIGHT HUMERUS: Three views. No acute fracture or dislocation is seen. Portions of the proximal humerus are less well visualized due to overlying soft tissue. No radiopaque foreign bodies are seen in the soft tissues. IMPRESSION: No definite acute fracture or dislocation. Lab Data Lab results reviewed: Yes I reviewed the patient's lab results. 09/27/18 13:14 Urine - Reflex from Ua Urine Culture - Pending Laboratory Tests Range/Units 09/27/18 09/27/18 09/27/18 12:15 12:15 13:14 WBC (4.4-10.8) k/cumm 8.16 RBC (4.50-6.00) m/cumm 4.07 L Hgb (13.5-17.5) g/dL 13.2 L Hct (40.0-50.0) % 40.4 MCV (80-95) fL 99.3 H MCH (27.0-33.0) pg 32.4 MCHC (32.0-36.0) g/dL 32.7 RDW (11.8-14.1) % 12.5 Plt Count (130-400) x1000/uL 189 MPV (8.0-11.0) fL 11.0 Immature Gran % 0.1 Neutrophils % 65.6 Lymphocytes % 22.4 Monocytes % 8.9 Eosinophils % 2.8 Basophils % 0.2 Absolute Neutrophils (1.2-6.7) k/cumm 5.34 Absolute Lymphocytes (1.2-3.4) k/cumm 1.83 Absolute Monocytes (0.11-0.7) k/cumm 0.73 H Absolute Eosinophils (0.0-0.7) k/cumm 0.23 Absolute Basophils (0.0-0.2) k/cumm 0.02 Sodium (136-145) mmol/L 143 Potassium (3.5-5.1) mmol/L 4.3 Chloride (98-107) mmol/L 107 Carbon Dioxide (21.0-32.0) mmol/L 25.0 Anion Gap (3-11) mmol/L 11.0 BUN (7-18) mg/dL 20 H Creatinine (0.70-1.30) mg/dL 1.31 H Estimated GFR/1.73 m2 (mL/min/1.73m2) 52.92 Glucose (70-100) mg/dL 115 H Calcium (8.5-10.1) mg/dL 9.3 Magnesium (1.8-2.4) mg/dL 1.7 L Total Bilirubin (0.2-1.0) mg/dL 0.6 AST (15-37) U/L 24 ALT (12-78) U/L 23 Alkaline Phosphatase (46-116) U/L 77 Troponin I (0.00-0.06) ng/mL < 0.02 Total Protein (6.4-8.2) g/dL 7.4 Albumin (3.4-5.0) g/dL 4.1 Urine Color (Yellow) Yellow Urine Clarity Clear Urine pH (5-8) 7.0 Ur Specific Allen (1.005-1.025) 1.020 Urine Protein (Negative) mg/dL 30 H Urine Ketones (Negative) mg/dL Trace H Urine Blood (Negative) Negative Urine Nitrite (Negative) Negative Urine Bilirubin (Negative) Negative Urine Urobilinogen (Up TO 0.2) EU/dL 0.2 Ur Leukocyte Esterase (Negative) Negative Urine RBC (0-2) Negative Urine WBC (0-5) HPF 3-5 Ur Epithelial Cells (Negative) HPF Rare Urine Crystals (Negative) HPF Negative Urine Bacteria (Negative) HPF Moderate Urine Casts (Negative) LPF 0-2 hyaline Urine Mucus (Negative) Trace Urine Other (Negative) Few renal Ur Culture Indicated? Yes Urine Glucose (Negative) mg/dL Negative ECG Data Attestation: I personally reviewed and interpreted this ECG (s) as follows: Interpretation: Rate of 53, sinus bradycardia, PVCs. T wave inversion in V2 and V3. QTc 449. QRS 102. HPI General Mode of arrival: EMS . Date/Time Provider Initiated Documentation: 09/27/18 12:10 . Limitations to Documentation: no limitations . Information obtained by: patient . HPI Narrative: Patient is a 78-year-old male with history hypertension, high cholesterol, LA with one cardiac stent who presents status post fall. Patient is unable to recall any events of the fall. EMS states that patient lives at home with his who has dementia. Apparently patient may have fallen while he was walking and then walked back up to his bed and laid down. EMS states they found him laying in his bed. Patient is complaining of pain in both of his arms extending from his clavicles, shoulders upper arms and forearms. He had complained of chest pain for EMS but denies this in the ER. He denies any abdominal pain, neck pain, back pain or hip pain. Related Data Home Medications Medication Instructions Recorded Confirmed ascorbic acid (vitamin C) [Vitamin 1 tab PO DAILY 06/18/17 09/27/18 C] aspirin [Aspir-Low] 1 tab PO DAILY 06/18/17 09/27/18 citalopram 1 mg PO DAILY 06/18/17 09/27/18 clopidogrel [Plavix] 75 mg PO DAILY 06/18/17 09/27/18 folic acid 1 mg PO DAILY 06/18/17 09/27/18 gabapentin 100 mg PO DIRECTED 06/18/17 09/27/18 lisinopril 20 mg PO DAILY 06/18/17 09/27/18 metoprolol tartrate 25 mg PO DAILY 06/18/17 09/27/18 simvastatin [Zocor] 40 mg PO HS 06/18/17 09/27/18 sulfadiazine 500 mg PO DIRECTED 06/18/17 08/30/18 finasteride mg PO DAILY 08/30/18 tamsulosin [Flomax] 0.4 mg PO DAILY 08/30/18 09/27/18 Allergies Allergy/AdvReac Type Severity Reaction Status Date / Time No Known Allergies Allergy Unverified 11/17/17 16:53 General Stated Complaint: Trauma RUPAL: 2 Review of Systems Review of Systems All systems reviewed & are unremarkable except as noted in HPI and below Constitutional Reports as per HPI, Denies chills and Denies fever(s) Eyes Denies blurry vision ENT Denies dizziness, Denies sore throat and Denies throat swelling Cardiovascular Denies chest pain and Denies dyspnea Respiratory Denies cough and Denies dyspnea Gastrointestinal Denies abdominal pain, Denies diarrhea and Denies vomiting Genitourinary Denies hematuria and Denies dysuria Musculoskeletal Denies back pain and Denies numbness Integumentary/Breasts Denies lesions and Denies rash Neurologic Denies dizziness, Denies focal weakness and Denies numbness Allergic/Immunologic Denies throat swelling PFSH Social History Smoking and Tabacco status: Former Tobacco Use alcohol intake: current alcohol intake frequency: a few times a month substance use type: does not use Exam Const General: cooperative and anxious Orientation: alert and awake HENMT Head: normal to inspection Head images: 1. 1.5 cm superficial abrasion to right posterior occipital head Ears: hearing grossly normal bilaterally, external ears normal and TM's normal bilaterally General nose exam: external nose normal Face and sinus: normal facial exam Mouth: oral mucosae normal Teeth and gingiva: dentition normal Throat: posterior oropharynx normal Eyes General: appearance normal, both eyes and all related structures Eyelids: eyelids normal Pupils: PERRL EOM: EOM intact bilaterally Neck Neck: normal visual inspection Lymphatic: no lymphadenopathy noted Chest Chest: normal inspection of the chest, normal palpation of entire chest wall and no tenderness Resp Effort & Inspection: normal respiratory effort and able to speak in complete sentences Auscultation: clear to auscultation bilaterally Cardio Rate: regular rate Rhythm: regular rhythm GI Inspection: normal to inspection Palpation: soft, not firm, no guarding, no hepatosplenomegaly, no masses and nontender Auscultation: normal bowel sounds Back/Spine/Pelvis Cervical Spine: No cervical spinal tenderness Thoracic/Lumbar Spine: No thoracic spinal tenderness and No lumbar spinal tenderness Pelvis: no pain with anterior-posterior compression Skin General skin exam: no rashes or lesions noted Neuro General: alert, awake, oriented x3, moves all extremities, no meningeal signs, no focal motor deficits and other (repeating words and phrases) Cranial Nerves: CN's II-XI intact bilaterally Cognition: normal cognition Speech: speech normal Gait: normal gait Motor: muscle tone normal throughout and strength 5/5 throughout Sensory Exam: no sensory deficits noted Extrem Other: Tenderness and pain in bilateral shoulders and upper arms with range of motion. No deformity, edema, ecchymosis, erythema or evidence of trauma. Normal range of motion bilateral hips, knees, ankles and feet without evidence of trauma. Neurovascularly intact. Psych Appearance: grossly normal Mental Status: mental status grossly normal and other Speech and Movement: speech and movement normal Mood: other Affect: anxious affect Thought Process: normal Course Vital Signs Pulse 67 09/27/18 12:06 Respiratory Rate 22 09/27/18 12:06 Blood Pressure 185/71 H 09/27/18 12:06 Pulse Oximetry 99 09/27/18 12:06 Pulse 63 09/27/18 13:02 Respiratory Rate 20 09/27/18 13:02 Respiratory Effort Short of Breath 09/27/18 12:13 Blood Pressure 167/71 H 09/27/18 13:02 Blood Pressure Position Supine 09/27/18 12:06 Pulse Oximetry 97 09/27/18 13:02 Oxygen Delivery Method Room Air 09/27/18 13:02 Oxygen Flow Rate 0 09/27/18 13:02 Lab/Test Results Lab/Test Results: Laboratory Tests Range/Units 09/27/18 09/27/18 12:15 12:15 WBC (4.4-10.8) k/cumm 8.16 RBC (4.50-6.00) m/cumm 4.07 L Hgb (13.5-17.5) g/dL 13.2 L Hct (40.0-50.0) % 40.4 MCV (80-95) fL 99.3 H MCH (27.0-33.0) pg 32.4 MCHC (32.0-36.0) g/dL 32.7 RDW (11.8-14.1) % 12.5 Plt Count (130-400) x1000/uL 189 MPV (8.0-11.0) fL 11.0 Immature Gran % 0.1 Neutrophils % 65.6 Lymphocytes % 22.4 Monocytes % 8.9 Eosinophils % 2.8 Basophils % 0.2 Absolute Neutrophils (1.2-6.7) k/cumm 5.34 Absolute Lymphocytes (1.2-3.4) k/cumm 1.83 Absolute Monocytes (0.11-0.7) k/cumm 0.73 H Absolute Eosinophils (0.0-0.7) k/cumm 0.23 Absolute Basophils (0.0-0.2) k/cumm 0.02 Sodium (136-145) mmol/L 143 Potassium (3.5-5.1) mmol/L 4.3 Chloride (98-107) mmol/L 107 Carbon Dioxide (21.0-32.0) mmol/L 25.0 Anion Gap (3-11) mmol/L 11.0 BUN (7-18) mg/dL 20 H Creatinine (0.70-1.30) mg/dL 1.31 H Estimated GFR/1.73 m2 (mL/min/1.73m2) 52.92 Glucose (70-100) mg/dL 115 H Calcium (8.5-10.1) mg/dL 9.3 Magnesium (1.8-2.4) mg/dL 1.7 L Total Bilirubin (0.2-1.0) mg/dL 0.6 AST (15-37) U/L 24 ALT (12-78) U/L 23 Alkaline Phosphatase (46-116) U/L 77 Troponin I (0.00-0.06) ng/mL < 0.02 Total Protein (6.4-8.2) g/dL 7.4 Albumin (3.4-5.0) g/dL 4.1
[2018-09-27 13:33] LABS: Bacteria Moderate HPF (Negative); Casts 0-2 Hyaline LPF (Negative); Crystals Negative HPF (Negative); Epithelial Cells Rare HPF (Negative); Mucus Trace (Negative); Other Cells Few Renal (Negative); RBC Negative (0-2)
[2018-09-27 13:34] LABS: C & S Indicated? Yes
--- NOTE | 2018-09-27 13:43 | NUR.NOTE ---
Nursing Note: Pt completed with diagnostic imaging. and friend in room. case managers Marcie in speaking with family and friend. pt awake and alert, dose not recall details of fall. no n/v. siu cath placed. small laceration note to right side of scalp, bleeding controlled. will continue to monitor.
--- NOTE | 2018-09-27 14:07 | PDOC.ERCMPRO ---
Care Management Progress Note 09/27-Dr. Riley requested assistance with Blake and his souse Halima Garcia. Blake fell in his garage this morning, per Dr. Riley patient has a subdural hematoma (Please see provider note). Met with Blake, Halima and caregiver Emily Aberdeen and friend Maryjo Hernández. Halima has dementia and can not be left alone. Discussed caregivers with Blake and he states that he pays Emily and another caregiver Wednesday-Wednesday for three hours a day. Friend Maryjo is here as well and will assist with Halima's care. Blake states that he went into his garage this morning and slipped on the ice. Blake states he does not remember the fall. According to Emily, who was at the home at the time of the fall, came back into the house and layed down in his bed. Emily called the ambulance. Blake states that he is having a hard time remembering the incident and having difficulty remembering names and words. Blake tells this CM that he does not have any children but his has three. Daughter Saira lives in [facility]; son Hudson lives in [facility]; and son Chito lives in [facility]. Emily and Maryjo will stay with Halima. Maryjo has already spoken to farhan Chávez. Maryjo will update Saira and between Halima's children and the caregivers, someone will be able to stay with Halima. Guy is here to transport Blake to [facility]. Halima has had the chance to kiss and say goodbye to Blake. Caregivers were given a bag with Blake's clothes and belt. There is no wallet here, Blake states it is home in his green jacket. Caregivers will make arrangements for Blake at [facility] and to bring Halima for visit if needed. Tresa ROSS and Dr. Riley aware of the above.
--- NOTE | 2018-09-27 14:19 | CMPROGNOTE_ITS ---
Care Management Progress Note 09/27-Dr. Riley requested assistance with Blake and his souse Halima Garcia. Blake fell in his garage this morning, per Dr. Riley patient has a subdural hematoma (Please see provider note). Met with Blake, Halima and caregiver Emily Hudson and friend Maryjo Hernández. Halima has dementia and can not be left alone. Discussed caregivers with Blake and he states that he pays Emily and another caregiver Wednesday- Wednesday for three hours a day. Friend Maryjo is here as well and will assist with Halima's care. Blake states that he went into his garage this morning and slipped on the ice. Blake states he does not remember the fall. According to Emily, who was at the home at the time of the fall, came back into the house and layed down in his bed. Emily called the ambulance. Blake states that he is having a hard time remembering the incident and having difficulty remembering names and words. Blake tells this CM that he does not have any children but his has three. Daughter Saira lives in [facility]; son Hudson lives in [facility]; and son Chito lives in [facility]. Emily and Maryjo will stay with Halima. Maryjo has already spoken to farhan Chávez. Maryjo will update Saira and between Halima's children and the caregivers, someone will be able to stay with Halima. Guy is here to transport Blake to [facility]. Halima has had the chance to kiss and say goodbye to Blake. Caregivers were given a bag with Blake's clothes and belt. There is no wallet here, Blake states it is home in his green jacket. Caregivers will make arrangements for Blake at [facility] and to bring Halima for visit if needed. Tresa ROSS and Dr. Riley aware of the above.
== END 2018-09-27 14:15 | disposition short-term general hospital (02) ==
PROVIDERS: Emergency Provider Physician Assistant; PCP Family Medicine
DX: S06.5X0A Traumatic subdural hemorrhage without loss of consciousness, initial encounter (principal); R00.1 Bradycardia, unspecified; S00.01XA Abrasion of scalp, initial encounter; M25.511 Pain in right shoulder; M79.601 Pain in right arm; M79.602 Pain in left arm; W01.0XXA Fall on same level from slipping, tripping and stumbling without subsequent striking against object, initial encounter; I10 Essential (primary) hypertension; M25.512 Pain in left shoulder
CPT/HCPCS: 36415; 74177; 80053; 93005; 96361; 96374; 99285; 70450; 71260; 72125; 73060; 81003; 81015; 83735; 84484; 85025; 87086; 93010; 99284; J2270; J3490

== ENCOUNTER 2023-11-16 14:07 | Emergency (ER) | payer OTHER, SELFPAY ==
[2023-11-16] VITALS (21 sets, daily range): BP systolic 142–201; BP diastolic 55–105; PULSE 55–85; RESP 10–22; TEMP 36.8; O2SAT 92–96
--- NOTE | 2023-11-16 14:10 | W.ED.GENAD ---
Discharge Plan Disposition Patient Disposition: Home Discharge Details Clinical Impression: Dizziness Primary Care Provider: Vera Stover ED Provider: Yon Leung Home Meds and New Rx's Prescriptions: Continued ascorbic acid (vitamin C) [Vitamin C] 1,000 MG tablet 1 tab PO DAILY citalopram 10 MG tablet 40 mg PO DAILY lisinopril 20 MG tablet 10 mg PO DAILY aspirin [Aspir-Low] 81 MG tablet,delayed release (DR/EC) 1 tab PO DAILY folic acid 1 MG tablet 1 mg PO DAILY gabapentin 100 MG capsule 300 mg PO DIRECTED Patient Comments: 4 am and 4 pm metoprolol tartrate 25 MG tablet 25 mg PO DAILY tamsulosin [Flomax] 0.4 mg Capsule 0.4 mg PO DAILY finasteride 1 mg Tablet 5 mg PO DAILY atorvastatin 80 mg tablet 80 mg PO DAILY levetiracetam 500 mg tablet 500 mg PO DAILY Discharge Instructions Instructions: Dizziness (ED) Additional Instructions: You are seen in the emergency department for your dizziness. Your MRI showed no sign of any stroke. Your blood work showed no sign of heart attack. Please return to the emergency department if you develop recurrent dizziness develop any chest pain or shortness of breath. Otherwise please follow-up with your primary care provider later this week. Discharge Data Discharge Date/Time-TO BE ENTERED AT DEPARTURE: 11/16/23 18:47 HPI General Date/Time Provider Initiated Documentation: 11/16/23 14:10. HPI Narrative: MDM This is a dizzy normothermic and not tachycardic 83-year-old male with hypertension coronary artery disease and presentation concerning for posterior circulation CVA given positive Romberg dizziness and nausea versus ACS versus acute electrolyte abnormality. Fingerstick blood glucose 103. No nystagmus so I did not complete a hints exam. Will review dry CT head to ensure that there is not a bleed prior to completing a tele neuroconsult. No pain out of proportion to suggest necrotizing soft tissue infection. No recent chiropractic manipulation to suggest increased risk for cervical arterial dissection so did not obtain a CT angiogram. I was not suspicious for large vessel occlusion so I did not think that the patient would be a thrombectomy candidate as he had no visual changes no aphasia nor neglect so I did not obtain a CT angiogram of his head. No tearing chest pain so doubt aortic dissection. No cough to suggest pneumonia. No dysuria no frequency so doubt UTI. No abdominal pain so doubt intra-abdominal infection. I considered PE however the patient is not tachycardic does not have chest pain or shortness of breath so my suspicion is low for PE. I considered sepsis however the patient is normothermic denies cough or urinary symptoms and is neither tachycardic nor hypotensive so I did not feel that he required lactate, empiric antibiotics or blood cultures. No trauma so doubt pneumothorax. 2:[address] head negative for any acute bleed. 3:57 PM Negative troponin. Reassuring normal TSH. No PERCY. No anion gap. No acute electrolyte abnormalities. Normal reassuring magnesium. Chest x-ray read as no acute findings. Mild normocytic anemia similar to prior. No leukocytosis. No thrombocytopenia. 5:40 PM I spoke with Dr. Lara from neurology who had assessed the patient. She felt that the patient had a negative MRI. Patient will be appropriate for empiric trial of discharge with expectant outpatient management. Patient was also noted to be orthostatic. MRI read as negative. I met with the patient he felt improved. Repeat troponin pending. Patient reported being anxious and wanted to go home. He is not to take any medications this evening. He does have an elevated blood pressure. Will reassess following repeat troponin. 10:45 PM Repeat troponin negative. Patient discharged with outpatient follow-up. We discussed return to the ED for any syncope chest pain nausea or vomiting. He understood his return indications. Chronic conditions affecting the care of the patient: BPH History obtained from an outside historian: N/A External record review: [facility] EMR Diagnostic interpretations performed by me: Per my independent interpretation chest x-ray shows: No acute cardiopulmonary process. Per my independent interpretation EKG shows: Narrow complex normal sinus rhythm at a rate of 65. Normal axis. Intervals within normal limits. No ST segment abnormalities beyond artifact in leads I and II in the first QRS complex. T wave flattening in aVL. Left lateral chest T wave flattening. No acute injury pattern. No prior for comparison. Medications: 250 cc bolus Social determinants of health affecting disposition: N/A Management discussed with: Neurology [facility] Treatment/interventions considered: N/A Response to therapies provided: N/A HPI This is an 83-year-old male with a history of coronary artery disease, hypertension, hyperlipidemia arrived to the emergency department via private vehicle in the setting of dizziness and nausea. Patient reports that he fell to his knees after suddenly feeling dizzy and lightheaded earlier today while visiting his at a jail facility. He did not lose consciousness. He did not hit his head. He takes aspirin but is no longer on clopidogrel as he is remote prior history of subdural. He notes that he felt diaphoretic during his episode earlier today. He has no history of vertigo. He was in his usual state of health earlier today and denies vomiting chest pain shortness of breath and abdominal pain. He rarely drinks ethanol but denies routine tobacco and illicits. He does have remote history of tobacco use and uses inhalers for COPD. Exam General: Well-appearing in no acute distress speaking in complete sentences. Head: Normocephalic, atraumatic. Eye:[Pupils equal, round reactive to light.] Extraocular eye movements intact. No conjunctival injection. No scleral icterus. Ear, nose, mouth, throat: Grossly normal inspection. Normal voice, handling secretions normally. Neck: Trachea midline. Cardiovascular: Well-perfused distal extremities. Regular rate and rhythm Respiratory: Nonlabored respiration. Clear lungs bilaterally Gastrointestinal: Nondistended abdomen. Soft nontender. Musculoskeletal: No edema. Moving all 4 extremities spontaneously. Skin: Normal for age and race, grossly normal temperature and turgor. No acute rash. Neurologic: Alert and appropriate, no apparent acute deficits. GCS 15. Positive Romberg. No nystagmus. Mild left-sided dysdiadochokinesia. No pronator drift. No neglect. No aphasia nor dysarthria. 5 out of 5 bilateral upper and lower extremity strength. Please see tele neuro note for complete NIH stroke scale. Psychiatric: Mood and manner are appropriate. Grooming and personal hygiene are appropriate. Related Data Home Medications Medication Instructions Recorded Confirmed ascorbic acid (vitamin C) 1,000 mg 1 tab PO DAILY 06/18/17 11/16/23 tablet (Vitamin C) aspirin 81 mg tablet,delayed 1 tab PO DAILY 06/18/17 11/16/23 release (Aspir-Low) citalopram 10 mg tablet 40 mg PO DAILY 06/18/17 11/16/23 folic acid 1 mg tablet 1 mg PO DAILY 06/18/17 11/16/23 gabapentin 100 mg capsule 300 mg PO DIRECTED 06/18/17 11/16/23 lisinopril 20 mg tablet 10 mg PO DAILY 06/18/17 11/16/23 metoprolol tartrate 25 mg tablet 25 mg PO DAILY 06/18/17 11/16/23 finasteride 1 mg tablet 5 mg PO DAILY 08/30/18 11/16/23 tamsulosin 0.4 mg capsule (Flomax) 0.4 mg PO DAILY 08/30/18 11/16/23 atorvastatin 80 mg tablet 80 mg PO DAILY 11/16/23 11/16/23 levetiracetam 500 mg tablet 500 mg PO DAILY 11/16/23 11/16/23 Allergies Allergy/AdvReac Type Severity Reaction Status Date / Time No Known Allergies Allergy Unverified 11/16/23 14:18 General RUPAL: 2 Medical Decision Making Quality:SDOH Health Related Social Needs: No Data to Display PFSH All Active Problems (Updated 11/16/23 @ 18:01 by Yon Leung MD) Dizziness (Acute) Medical History (Updated 11/16/23 @ 18:01 by Yon Leung MD) Depression Hyperlipemia HTN (hypertension) Myocardial infarction Surgical History History of coronary artery stent placement Social History Smoking/Tobacco Use Status: Former Tobacco Use Smoking risk assessment performed?: Yes Alcohol Intake: current Alcohol Intake frequency: a few times a month Drug use: Never Substance use type: does not use Housing: apartment Do you feel safe at home: Yes Do you feel safe in your relationship?: Yes
--- NOTE | 2023-11-16 14:15 | DI.RAD_ITS ---
Exam(s) XR CHEST 1V IN DI DEPT EXAM: XR CHEST 1V IN DI DEPT CLINICAL HISTORY: Dizziness TECHNIQUE: 2D digital imaging was performed. COMPARISON: CT CT CHEST/ABD/PEL W from 09/27/2018 FINDINGS: LUNGS: Clear. No pleural abnormality seen. HEART: Enlarged. AORTA: Normal diameter. Calcification at arch. BONES: Spine mostly obscured. Soft tissues: Unremarkable. IMPRESSION: No acute findings. DATA REPOSITORY: RADIATION DOSE DELIVERED:
--- NOTE | 2023-11-16 14:15 | DI.CT_ITS ---
Exam(s) CT HEAD - STROKE PROTOCOL EXAM: CT HEAD - STROKE PROTOCOL CLINICAL HISTORY: Dizziness. TECHNIQUE: Imaging Protocol: Axial computed tomography images with coronal and sagittal reformatted images were created and reviewed COMPARISON: CT CT HEAD CERVICAL SPINE WO from 09/27/2018 FINDINGS: Ventricles and Extra axial spaces: Normal in size and morphology for the patient's age. Hemorrhage: None. Cerebral parenchyma: No evidence of acute infarct or mass. Mild atrophy. Stable white matter changes small vessel disease. Old lacunar infarct in the left basal ganglia. Midline shift: None. Brainstem/Cerebellum: Normal. Calvarium: Normal. Visualized Paranasal sinuses:Clear. Mastoids: Clear. Soft Tissues: Unremarkable. ORBITS: Unremarkable. PITUITARY: Not enlarged. IMPRESSION: No acute intracranial process. Findings called to Dr. Leung of the emergency department. RADIATION DOSE DELIVERED: 858.98mGy.cm Total DLP DATA REPOSITORY: All CT scans at this facility are submitted to the National Radiology Data Registry (NRDR) Dose Index Registry (DIR) with the [employer] (ACR). RADIATION OPTIMIZATION: All CT scans at this facility use at least one of these dose optimization te chniques: automated exposure control; mA and/or kV adjustment per patient size (includes targeted exa ms where dose is matched to clinical indication); or iterative reconstruction.
--- NOTE | 2023-11-16 14:15 | RT.EKG_ITS ---
APPROVED REPORT Exam: Resting ECG Reason for Exam: Fall Patient Location: E HR:65 bpm ECG Measurements Heart Rate 65 AXIS CA 176 P 44 QRSd 96 QRS 13 QT 454 T 104 QTc 473 Conclusion Sinus rhythm...normal P axis, V-rate 60- 99 Inferior infarct, old...Q >35mS, II III aVF Nonspecific T abnormalities, lateral leads...T <-0.10mV, I aVL V5 V6 Narrow complex normal sinus rhythm at a rate of 65. Normal axis. Intervals within normal limits. N o ST segment abnormalities beyond artifact in leads I and II in the first QRS complex. T wave flatte mable in aVL. Left lateral chest T wave flattening. No acute injury pattern. No prior for compariso n.
--- NOTE | 2023-11-16 14:30 | DI.MRI_ITS ---
Exam(s) MR BRAIN WO EXAM: MR BRAIN WO CLINICAL HISTORY: Dizziness TECHNIQUE: Multiplanar multisequence MRI of the brain was performed. COMPARISON: CT CT HEAD - STROKE PROTOCOL from 11/16/2023 FINDINGS: The examination is limited due to patient motion artifact. VENTRICLES AND EXTRA AXIAL SPACES: Normal in size and morphology for the patient's age. MIDLINE SHIFT: None. CEREBRAL PARENCHYMA: No focus of restricted diffusion to suggest acute infarct. No space-occupying le yolanda identified. There are multiple areas of hyperintense signal seen on the FLAIR images in the whit e matter consistent with chronic microvascular ischemic disease. There is a left chronic basal gangl iar lacunar infarct. HEMORRHAGE: None. BRAINSTEM/CEREBELLUM: Normal. CALVARIUM: Normal. VISUALIZED PARANASAL SINUSES/MASTOIDS:Clear. [place]: Normal flow void. PITUITARY GLAND: Unremarkable. OTHER FINDINGS: None. IMPRESSION: 1. The examination is limited due to patient motion artifact. 2. No evidence of an acute territorial infarct. 3. Age-related cerebral atrophy and chronic microvascular ischemic disease. 4. 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 DATA REPOSITORY:
[2023-11-16 15:20] LABS: Abs Immature Grans 0.04 10^3/uL (0.0-0.06); Absolute Basophil Count 0.04 10^3/uL (0.0-0.2); Absolute Eosinophil Count 0.07 10^3/uL (0.0-0.7); Absolute Lymphocyte Count 1.33 10^3/uL (1.2-3.4); Absolute Monocyte Count 0.56 10^3/uL (0.1-0.8); Basophils % 0.4; Eosinophils % 0.7; HCT 38.6 % (40.0-50.0); HGB 13.1 g/dL (13.5-17.5); Immature Grans % 0.4; Lymphocytes % 13.2; MCH 31.4 pg (27.0-33.0); MCHC 33.9 % (32.0-36.0); MCV 93 fL (80-95); MPV 10.4 fL (8.0-11.0); Monocytes % 5.6; Neutrophils % 79.7; Platelet Count 199 10^3/uL (130-400); RBC 4.17 10^6/uL (4.36-5.78); RDW 13.2 % (11.8-14.1); RDW-SD 44.9 fL; WBC 10.04 10^3/uL (4.4-10.8)
[2023-11-16 15:24] LABS: Anion Gap 8.5 mmol/L (3-11); BUN 22 mg/dL (7-18); CO2 25.5 mmol/L (21.0-32.0); CREATININE 1.1 mg/dL (0.70-1.30); Chloride 108 mmol/L (98-107); Estimated GFR 66.61 (mL/min/1.73m2); Glucose 105 mg/dL (74-106); Potassium 4.9 mmol/L (3.5-5.1); Sodium 142 mmol/L (136-145); Troponin I < 50 ng/L (< or =60)
[2023-11-16 15:31] LABS: Magnesium 2.1 mg/dL (1.8-2.4); TSH (W/Ref FT4) 2.35 uIU/mL (0.36-3.74)
[2023-11-16] MEDS: Normal Saline 500 ML 250 ML IV (16:47)
[2023-11-16 16:51] LABS: Bilirubin Negative (Negative); Blood Negative (Negative); Clarity Clear (Clear); Glucose Negative (Negative); Ketones Negative (Negative); Leukocyte Esterase Negative (Negative); Nitrite Negative (Negative); Specific Gravity 1.015 (1.005-1.025); Urobilinogen 0.2 mg/dL (Up to 0.2); pH 5.5 (5-8)
[2023-11-16 18:22] LABS: Troponin I < 50 ng/L (< or =60)
== END 2023-11-16 18:47 | disposition home or self-care (01) ==
PROVIDERS: Emergency Provider Emergency Medicine; PCP Physician Assistant
DX: R42 Dizziness and giddiness (principal); I25.10 Atherosclerotic heart disease of native coronary artery without angina pectoris; I25.2 Old myocardial infarction; I10 Essential (primary) hypertension; E78.5 Hyperlipidemia, unspecified; J44.9 Chronic obstructive pulmonary disease, unspecified; Z95.5 Presence of coronary angioplasty implant and graft; Z79.82 Long term (current) use of aspirin; Z87.891 Personal history of nicotine dependence
CPT/HCPCS: 36415; 80048; 82962; 93005; 96360; 96361; 99285; 70450; 70551; 71045; 81003; 83735; 84443; 84484; 85025; 93010; 99284

== ENCOUNTER 2024-05-09 17:33 | Emergency (ER) | payer OTHER, SELFPAY ==
[2024-05-09 17:37] VITALS: BP 151/69; PULSE 65; RESP 12; TEMP 36.6; O2SAT 94
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
== END 2024-05-09 18:52 | disposition home or self-care (01) ==
PROVIDERS: Emergency Provider Emergency Medicine; PCP Physician Assistant
DX: S62.643A Nondisplaced fracture of proximal phalanx of left middle finger, initial encounter for closed fracture; V29.408A Other motorcycle driver injured in collision with unspecified motor vehicles in traffic accident, initial encounter
CPT/HCPCS: 26720; 99283; 73140

== ENCOUNTER 2024-08-08 13:51 | Emergency (ER) | payer OTHER, SELFPAY ==
[2024-08-08] VITALS (33 sets, daily range): BP systolic 94–147; BP diastolic 40–98; PULSE 60–108; RESP 10–25; TEMP 36.4; O2SAT 94–100
--- NOTE | 2024-08-08 13:45 | RT.EKG_ITS ---
APPROVED REPORT Exam: Resting ECG Reason for Exam: dizzy Patient Location: E HR:71 bpm ECG Measurements Heart Rate 71 AXIS MO 155 P 62 QRSd 109 QRS 49 QT 435 T 58 QTc 475 Conclusion Sinus rhythm...normal P axis, V-rate 60- 99 Inferior infarct, old...Q >35mS, II III aVF No STEMI
--- NOTE | 2024-08-08 14:30 | DI.CT_ITS ---
Exam(s) CT HEAD WO EXAM: CT HEAD WO CLINICAL HISTORY: vertigo. TECHNIQUE: Imaging Protocol: Axial computed tomography images with coronal and sagittal reformatted images were created and reviewed COMPARISON: CT CT HEAD - STROKE PROTOCOL from 11/16/2023 FINDINGS: The examination is limited due to patient motion artifact. Ventricles and Extra axial spaces: Normal in size and morphology for the patient's age. Hemorrhage: None. Cerebral parenchyma: There are areas of decreased attenuation in the white matter consistent with chr onic microvascular ischemic disease. There is again seen an old lacunar infarct in the left basal ga nglia. No acute territorial infarct is seen. No acute mass effect is present. Midline shift: None. Brainstem/Cerebellum: Normal. Calvarium: Normal. Visualized Paranasal sinuses/Mastoids: Clear. Soft Tissues: Unremarkable. IMPRESSION: No acute intracranial process. RADIATION DOSE DELIVERED: 880.18mGy.cm Total DLP DATA REPOSITORY: All CT scans at this facility are submitted to the National Radiology Data Registry (NRDR) Dose Index Registry (DIR) with the [employer] (ACR). RADIATION OPTIMIZATION: All CT scans at this facility use at least one of these dose optimization te chniques: automated exposure control; mA and/or kV adjustment per patient size (includes targeted exa ms where dose is matched to clinical indication); or iterative reconstruction.
[2024-08-08 15:03] LABS: Abs Immature Grans 0.04 10^3/uL (0.0-0.06); Absolute Basophil Count 0.04 10^3/uL (0.0-0.2); Absolute Lymphocyte Count 2.48 10^3/uL (1.2-3.4); Absolute Monocyte Count 0.93 10^3/uL (0.1-0.8); Basophils % 0.4 %; Eosinophils % 0.9 %; HCT 42.4 % (40.0-50.0); HGB 14.4 g/dL (13.5-17.5); Immature Grans % 0.4 %; Lymphocytes % 22.7 %; MCH 32.3 pg (27.0-33.0); MCV 95 fL (80-95); MPV 10.5 fL (8.0-11.0); Monocytes % 8.5 %; Neutrophils % 67.1 %; Platelet Count 262 10^3/uL (130-400); RBC 4.46 10^6/uL (4.36-5.78); RDW 12.1 % (11.8-14.1); RDW-SD 42.1 fL; WBC 10.94 10^3/uL (4.4-10.8)
[2024-08-08 15:04] LABS: Absolute Neutrophil Count 7.34 10^3/uL (1.2-6.7)
[2024-08-08] MEDS: Meclizine 25 MG TAB PO (15:05)
[2024-08-08] MEDS: Normal Saline 1,000 ML 1000 ML IV (15:16)
[2024-08-08 15:26] LABS: ALT 33 U/L (16-63); AST 27 U/L (15-37); Albumin 4.1 g/dL (3.4-5.0); Alkaline Phosphatase 105 U/L (46-116); Anion Gap 6.9 mmol/L (3-11); BUN 31 mg/dL (7-18); Bilirubin, Total 1.17 mg/dL (0.2-1.0); CO2 28.1 mmol/L (21.0-32.0); Calcium 9.5 mg/dL (8.5-10.1); Chloride 106 mmol/L (98-107); Glucose 106 mg/dL (74-106); Magnesium 1.8 mg/dL (1.8-2.4); NT-proBNP 922 pg/mL (<300); Potassium 4.5 mmol/L (3.5-5.1); Sodium 141 mmol/L (136-145); Total Protein 7.4 g/dL (6.4-8.2); Troponin I 29 ng/L (<or=76)
--- NOTE | 2024-08-08 16:47 | W.ED.GENAD ---
Discharge Plan Disposition Patient Disposition: Against Medical Advice Condition: Serious Discharge Details Clinical Impression: Vertigo Primary Care Provider: Vera Stover ED Provider: Rhianna Anglin Home Meds and New Rx's Prescriptions: Continued ascorbic acid (vitamin C) [Vitamin C] 1,000 MG tablet 1 tab PO DAILY citalopram 10 MG tablet 40 mg PO DAILY lisinopril 20 MG tablet 10 mg PO DAILY aspirin [Aspir-Low] 81 MG tablet,delayed release (DR/EC) 1 tab PO DAILY folic acid 1 MG tablet 1 mg PO DAILY gabapentin 100 MG capsule 300 mg PO DIRECTED Patient Comments: 4 am and 4 pm metoprolol tartrate 25 MG tablet 25 mg PO DAILY tamsulosin [Flomax] 0.4 mg Capsule 0.4 mg PO DAILY finasteride 1 mg Tablet 5 mg PO DAILY atorvastatin 80 mg tablet 80 mg PO DAILY levetiracetam 500 mg tablet 500 mg PO DAILY Discharge Instructions Instructions: Dizziness, Adult ED Additional Instructions: I am concerned that you may be having a stroke. This can lead to permanent disability, loss of ability to function independently, sexual dysfunction, and . We would like you to stay for more testing but you have chosen to leave against medical advice. You also have signs of kidney damage on your bloodwork- if this does not improve you could need dialysis, or you could also - I would like you to stay so we can continue to watch this but you have chosen to leave. Please return to the emergency department if you change your mind, or if you develop new or worsening symptoms. We have sent a referral to neurology- if you will not get your CT scan and MRI here you should get it on an outpatient basis as soon as possible. Please call them in the morning to schedule an appointment. Referrals: [facility] [Provider Group] [facility] General Mode of arrival: ambulatory. Date/Time Provider Initiated Documentation: 08/08/24 14:26. Limitations to Documentation: no limitations. Information obtained by: patient and old records reviewed. HPI Narrative: 84yo M with hx CAD/NH with stents, HTN, HLD, presenting for vertigo. Has had vertigo in the past but has been much worse over the past week, today having trouble walking. Feels 'off balance' and like he is going to fall over. Also reports feeling like he might pass out. Associated nausea, no vomiting. Decreased PO 2/t nausea. No headache, numbness, tingling, weakness, or vision changes. No chest pain or shortness of breath. No abdominal pain. No recent head injuries or falls. Otherwise in his usual state of health with no fevers, chills, rash, or other concerns. Related Data Home Medications ?Medication ?Instructions ?Recorded ?Confirmed ascorbic acid (vitamin C) 1,000 mg 1 tab PO DAILY 06/18/17 08/08/24 tablet (Vitamin C) aspirin 81 mg tablet,delayed 1 tab PO DAILY 06/18/17 08/08/24 release (Aspir-Low) citalopram 10 mg tablet 40 mg PO DAILY 06/18/17 08/08/24 folic acid 1 mg tablet 1 mg PO DAILY 06/18/17 08/08/24 gabapentin 100 mg capsule 300 mg PO DIRECTED 06/18/17 08/08/24 lisinopril 20 mg tablet 10 mg PO DAILY 06/18/17 08/08/24 metoprolol tartrate 25 mg tablet 25 mg PO DAILY 06/18/17 08/08/24 finasteride 1 mg tablet 5 mg PO DAILY 08/30/18 08/08/24 tamsulosin 0.4 mg capsule (Flomax) 0.4 mg PO DAILY 08/30/18 08/08/24 atorvastatin 80 mg tablet 80 mg PO DAILY 11/16/23 08/08/24 levetiracetam 500 mg tablet 500 mg PO DAILY 11/16/23 08/08/24 Allergies Allergy/AdvReac Type Severity Reaction Status Date / Time No Known Allergies Allergy Verified 05/09/24 17:39 General Stated Complaint: Dizzy/Sync RUPAL: 2 Review of Systems Narrative: see HPI Exam Narrative Exam Narrative: General: Alert, well appearing, well nourished, in no acute distress. Head: Normocephalic, atraumatic Neck: Trachea midline, ?Neck supple. ENT: ?MMM.? No oropharygeal lesions or exudate. Cardiac: ?RRR, no murmurs appreciated Resp: No respiratory distress. CTAB. Abd: ?Soft, non-distended, nontender Extremities: ?No deformities.? Neuro: ? GCS 15.? PERRL.? EOMI.? Fluent speech, no dysarthria. Motor- 5/5 strength symmetric bilateral upper and lower extremities including shoulder abductors/adductors, elbow flexors/extensors, wrist flexors/extensors, finger abductors/adductors, hipflexors/extensors, knee flexors/extensors, ankle dorsiflexors and planter flexors. Sensation- ?Intact to light touch and symmetric multiple dermatomes including upper and lower extremities Coordination- No dysmetria on finger to nose. + Romberg Reflexes- 2/4 achilles & patellar, no clonus Gait/station: ?Normal stance.? No truncal ataxia. Slow hesitant gait with equal short steps CRANIAL NERVES: II: Pupils equal and reactive, III, IV, : EOM intact, no gaze preference or deviation, no nystagmus. V: normal sensation in V1, V2, and V3 segments bilaterally VII: no asymmetry, no nasolabial fold flattening VIII: normal hearing to speech IX, X: normal palatal elevation, no uvular deviation XI: 5/5 head turn and 5/5 shoulder shrug bilaterally XII: midline tongue protrusion Course Vital Signs Vital signs: Vital Signs Temperature 36.4 C L 08/08/24 13:56 Pulse 101 H 08/08/24 13:56 Respiratory Rate 20 08/08/24 13:56 Blood Pressure 94/58 L 08/08/24 13:56 Pulse Oximetry 98 08/08/24 13:56 Temperature 36.4 C L 08/08/24 13:56 Pulse 75 08/08/24 15:01 Pulse 64 08/08/24 16:20 Respiratory Rate 12 08/08/24 16:20 Respiratory Effort Normal, Non-Labored 08/08/24 15:44 Respiratory Depth Normal 08/08/24 15:44 Respiratory Pattern Normal 08/08/24 15:44 Blood Pressure 95/53 L 08/08/24 15:01 Blood Pressure Mean 59 08/08/24 15:01 Pulse Oximetry 98 08/08/24 16:10 Pain Level 0 08/08/24 13:56 Lab/Test Results Lab/Test Results: Laboratory Tests Range/Units 08/08/24 14:55 WBC (4.4-10.8) 10^3/uL 10.94 H RBC (4.36-5.78) 10^6/uL 4.46 Hgb (13.5-17.5) g/dL 14.4 Hct (40.0-50.0) % 42.4 MCV (80-95) fL 95 MCH (27.0-33.0) pg 32.3 MCHC (32.0-36.0) % 34.0 RDW (11.8-14.1) % 12.1 Plt Count (130-400) 10^3/uL 262 MPV (8.0-11.0) fL 10.5 Immature Gran % % 0.4 Neutrophils % % 67.1 Lymphocytes % % 22.7 Monocytes % % 8.5 Eosinophils % % 0.9 Basophils % % 0.4 Nucleated RBC % (0.0-0.3) % 0.0 Absolute Neutrophils (1.2-6.7) 10^3/uL 7.34 H Absolute Lymphocytes (1.2-3.4) 10^3/uL 2.48 Absolute Monocytes (0.1-0.8) 10^3/uL 0.93 H Absolute Eosinophils (0.0-0.7) 10^3/uL 0.10 Absolute Basophils (0.0-0.2) 10^3/uL 0.04 Sodium (136-145) mmol/L 141 Potassium (3.5-5.1) mmol/L 4.5 Chloride (98-107) mmol/L 106 Carbon Dioxide (21.0-32.0) mmol/L 28.1 Anion Gap (3-11) mmol/L 6.9 BUN (7-18) mg/dL 31 H Creatinine (0.70-1.30) mg/dL 2.0 H Est GFR (CKD-EPI 2020) (mL/min/1.73m2) 32.30 Glucose (74-106) mg/dL 106 Calcium (8.5-10.1) mg/dL 9.5 Magnesium (1.8-2.4) mg/dL 1.8 Total Bilirubin (0.2-1.0) mg/dL 1.17 H AST (15-37) U/L 27 ALT (16-63) U/L 33 Alkaline Phosphatase (46-116) U/L 105 Troponin I (<or=76) ng/L 29 NT-Pro-B Natriuret Pep (<300) pg/mL 922 H Total Protein (6.4-8.2) g/dL 7.4 Albumin (3.4-5.0) g/dL 4.1 Medical Decision Making 84yo M with hx CAD/NH with stents, HTN, HLD, presenting for vertigo. Has had vertigo in the past but has been much worse over the past week, today having trouble walking. Feels 'off balance' and like he is going to fall over, however also reports feeling like he might pass out. Associated nausea, no vomiting, decreased PO 2/t nausea. BP low on arrival, 90's/50's with HR 101 after ambulating into triage; HR improved to 70's without intervention. +Romberg on exam, otherwise normal neurologic exam. No worsening of symptoms when going from sitting to standing. [facility] record review shows very similar presentation in October of last year with reassuring workup including negative MRI at that time. May be chronic vertigo, but difficult to exclude new posterior circulation infarct or vertibrobasilar insufficiency in the setting of mild hypotension; will workup for central causes as well. Symptoms have been present and worsening for over a week, no indication for tPA. Will trial meclizine while awaiting results of workup. -EKG NSR, no ST segment or T wave abnormalities to suggest occlusive NH. -Labs reviewed as below, CBC with no significant leukocytosis or anemia, CMP with Cr elevated to 2.0 from normal baseline (? volume depletion in setting of decreased PO & nausea; will give 1L IVFB), Mg normal, initial troponin 29 with repeat 26 (would not further pursue ACS), BNP moderately elevated at ~900 with no hypoxia or increased WOB and clear lungs on exam (clinically not acute heart failure). -CT head non-con independently reviewed; no ICH or mass on my view, radiology read below with no acute intracranial proccess. Repeat BMP after IVF with slightly improved Cr, 1.8. BP also improved 130's/50's. Teleneurology consulted; I spoke with Dr. Granados who advised checking orthostatic vital signs and if not orthostatic, admit for MRI brain and c-spine and CTA head and neck. Given likely PERCY and no emergent interventions on the table, will hold CTA until am pending improved Cr. Plan discussed with patient who is agreeable to admission with encouragement from his daughter at bedside. Discussed with [facility] hospitalist Dr. Ramsey and pt accepted to medicine service. Prior to admission orders being placed, I was notified by nursing that patient stated he was going to leave. I discussed with Mr. Longo and his daughter my concerns that he may be having a stroke and my medical advice that he remain for further workup including CT, MRI, and repeat bloodwork. I advised him that failing to do this could result in worsening symptoms and ultimately permanent disability or . He verbalized understanding of my concerns and states If it's my time to go, then I go and again stated that he wanted to leave as he did not want to wait in the ED any longer. He demonstrated decision making capacity and I have no indication to hold him against his will. I discussed with him the importance of following up with neurology, and encouraged him to return to the emergency department if he should change his mind or if his symptoms should worsen. He verbalized understanding of this. Declined to wait for written discharge instructions; these were printing and mailed to him and a referral to neurology was sent. Imaging Data Radiologic Study: Imaging: CT Scan Radiologist's impression: IMPRESSION: No acute intracranial process. Lab Data Lab results reviewed: Yes I reviewed the patient's lab results. Labs: Laboratory Tests Range/Units 08/08/24 08/08/24 14:55 17:20 WBC (4.4-10.8) 10^3/uL 10.94 H RBC (4.36-5.78) 10^6/uL 4.46 Hgb (13.5-17.5) g/dL 14.4 Hct (40.0-50.0) % 42.4 MCV (80-95) fL 95 MCH (27.0-33.0) pg 32.3 MCHC (32.0-36.0) % 34.0 RDW (11.8-14.1) % 12.1 Plt Count (130-400) 10^3/uL 262 MPV (8.0-11.0) fL 10.5 Immature Gran % % 0.4 Neutrophils % % 67.1 Lymphocytes % % 22.7 Monocytes % % 8.5 Eosinophils % % 0.9 Basophils % % 0.4 Nucleated RBC % (0.0-0.3) % 0.0 Absolute Neutrophils (1.2-6.7) 10^3/uL 7.34 H Absolute Lymphocytes (1.2-3.4) 10^3/uL 2.48 Absolute Monocytes (0.1-0.8) 10^3/uL 0.93 H Absolute Eosinophils (0.0-0.7) 10^3/uL 0.10 Absolute Basophils (0.0-0.2) 10^3/uL 0.04 Sodium (136-145) mmol/L 141 141 Potassium (3.5-5.1) mmol/L 4.5 4.3 Chloride (98-107) mmol/L 106 108 H Carbon Dioxide (21.0-32.0) mmol/L 28.1 26.0 Anion Gap (3-11) mmol/L 6.9 7.0 BUN (7-18) mg/dL 31 H 32 H Creatinine (0.70-1.30) mg/dL 2.0 H 1.8 H Est GFR (CKD-EPI 2020) (mL/min/1.73m2) 32.30 36.66 Glucose (74-106) mg/dL 106 100 Calcium (8.5-10.1) mg/dL 9.5 8.9 Magnesium (1.8-2.4) mg/dL 1.8 Total Bilirubin (0.2-1.0) mg/dL 1.17 H AST (15-37) U/L 27 ALT (16-63) U/L 33 Alkaline Phosphatase (46-116) U/L 105 Troponin I (<or=76) ng/L 29 26 NT-Pro-B Natriuret Pep (<300) pg/mL 922 H Total Protein (6.4-8.2) g/dL 7.4 Albumin (3.4-5.0) g/dL 4.1 Quality:SDOH Health Related Social Needs: No Data to Display PFSH All Active Problems (Updated 08/08/24 @ 18:56 by Rhianna Anglin MD) Seizure disorder (Chronic) BPH (benign prostatic hyperplasia) (Chronic) Vertigo (Acute) CAD S/P percutaneous coronary angioplasty (Acute) Medical History (Updated 08/08/24 @ 18:56 by Rhianna Anglin MD) Depression Hyperlipemia HTN (hypertension) Myocardial infarction Surgical History History of coronary artery stent placement Social History Smoking/Tobacco Use Status: Former Tobacco Use Smoking risk assessment performed?: Yes Alcohol Intake: current Alcohol Intake frequency: a few times a month Drug use: Never Substance use type: does not use Housing: apartment Do you feel safe at home: Yes Do you feel safe in your relationship?: Yes
[2024-08-08 17:44] LABS: BUN 32 mg/dL (7-18); CREATININE 1.8 mg/dL (0.70-1.30); Calcium 8.9 mg/dL (8.5-10.1); Chloride 108 mmol/L (98-107); Estimated GFR 36.66 (mL/min/1.73m2); Glucose 100 mg/dL (74-106); Potassium 4.3 mmol/L (3.5-5.1); Sodium 141 mmol/L (136-145)
[2024-08-08 17:54] LABS: Troponin I 26 ng/L (<or=76)
--- NOTE | 2024-08-08 18:25 | W.PM.HP.N ---
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 Per the records need to be obtained the patient also on antiseizure meds which may be secondary to the subdural as well. He is on antihypertensives with lisinopril and metoprolol which will be continued as long we are letting the systolic pressure be above 140 with permissive hypertension with question of posterior CVA. (4) Depression: (5) CAD S/P percutaneous coronary angioplasty: Status: Acute (6) BPH (benign prostatic hyperplasia): Status: Chronic (7) Seizure disorder: Status: Chronic History of Present Illness History of Present Illness Chief Complaint: Acute onset vertiginous symptoms, neck pain Review of Systems Narrative: 13 point review of systems otherwise unrevealing or stable. PFSH All Active Problems (Updated 08/08/24 @ 18:32 by Mirza Cerda) Seizure disorder (Chronic) BPH (benign prostatic hyperplasia) (Chronic) Vertigo (Acute) CAD S/P percutaneous coronary angioplasty (Acute) Medical History (Updated 08/08/24 @ 18:32 by Mirza Cerda) Depression Hyperlipemia HTN (hypertension) Myocardial infarction Surgical History History of coronary artery stent placement Social History Smoking/Tobacco Use Status: Former Tobacco Use Smoking risk assessment performed?: Yes Alcohol Intake: current Alcohol Intake frequency: a few times a month Drug use: Never Substance use type: does not use Housing: apartment Do you feel safe at home: Yes Do you feel safe in your relationship?: Yes Meds Allergies and Home Medications Allergies Allergy/AdvReac Type Severity Reaction Status Date / Time No Known Allergies Allergy Verified 05/09/24 17:39 Home Medications ?Medication ?Instructions ?Recorded ?Confirmed ?Type ascorbic acid (vitamin C) 1,000 mg 1 tab PO DAILY 06/18/17 08/08/24 History tablet (Vitamin C) aspirin 81 mg tablet,delayed 1 tab PO DAILY 06/18/17 08/08/24 History release (Aspir-Low) citalopram 10 mg tablet 40 mg PO DAILY 06/18/17 08/08/24 History folic acid 1 mg tablet 1 mg PO DAILY 06/18/17 08/08/24 History gabapentin 100 mg capsule 300 mg PO DIRECTED 06/18/17 08/08/24 History lisinopril 20 mg tablet 10 mg PO DAILY 06/18/17 08/08/24 History metoprolol tartrate 25 mg tablet 25 mg PO DAILY 06/18/17 08/08/24 History finasteride 1 mg tablet 5 mg PO DAILY 08/30/18 08/08/24 History tamsulosin 0.4 mg capsule (Flomax) 0.4 mg PO DAILY 08/30/18 08/08/24 History atorvastatin 80 mg tablet 80 mg PO DAILY 11/16/23 08/08/24 History levetiracetam 500 mg tablet 500 mg PO DAILY 11/16/23 08/08/24 History Results Imaging Imaging Studies: EXAM: CT HEAD WO Date of exam: 08/08/2024 CLINICAL HISTORY: vertigo. TECHNIQUE: Imaging Protocol: Axial computed tomography images with coronal and sagittal reformatted images were created and reviewed COMPARISON: CT CT HEAD - STROKE PROTOCOL from 11/16/2023 FINDINGS: The examination is limited due to patient motion artifact. Ventricles and Extra axial spaces: Normal in size and morphology for the patient's age. Hemorrhage: None. Cerebral parenchyma: There are areas of decreased attenuation in the white matter consistent with chronic microvascular ischemic disease. There is again seen an old lacunar infarct in the left basal ganglia. No acute territorial infarct is seen. No acute mass effect is present. Midline shift: None. Brainstem/Cerebellum: Normal. Calvarium: Normal. Visualized Paranasal sinuses/Mastoids: Clear. Soft Tissues: Unremarkable. IMPRESSION: No acute intracranial process. Labs 08/08/24 14:55 08/08/24 17:20 Labs: Laboratory Results - last 24 hr 08/08/24 08/08/24 14:55 17:20 WBC 10.94 H RBC 4.46 Hgb 14.4 Hct 42.4 MCV 95 MCH 32.3 MCHC 34.0 RDW 12.1 Plt Count 262 MPV 10.5 Immature Gran % 0.4 Neutrophils % 67.1 Lymphocytes % 22.7 Monocytes % 8.5 Eosinophils % 0.9 Basophils % 0.4 Nucleated RBC % 0.0 Absolute Neutrophils 7.34 H Absolute Lymphocytes 2.48 Absolute Monocytes 0.93 H Absolute Eosinophils 0.10 Absolute Basophils 0.04 Sodium 141 141 Potassium 4.5 4.3 Chloride 106 108 H Carbon Dioxide 28.1 26.0 Anion Gap 6.9 7.0 BUN 31 H 32 H Creatinine 2.0 H 1.8 H Est GFR (CKD-EPI 2020) 32.30 36.66 Glucose 106 100 Calcium 9.5 8.9 Magnesium 1.8 Total Bilirubin 1.17 H AST 27 ALT 33 Alkaline Phosphatase 105 Troponin I 29 26 NT-Pro-B Natriuret Pep 922 H Total Protein 7.4 Albumin 4.1 Last Vital Signs Temp 36.4 C L 08/08/24 13:56 Pulse 61 08/08/24 18:01 Resp 14 08/08/24 18:02 BP 147/40 H 08/08/24 18:01 Pulse Ox 100 08/08/24 18:02
== END 2024-08-08 19:11 | disposition left against medical advice (07) ==
PROVIDERS: Emergency Provider Student in an Organized Health Care Education/Training Program; PCP Physician Assistant
DX: R42 Dizziness and giddiness (principal); Z53.29 Procedure and treatment not carried out because of patient's decision for other reasons; R11.0 Nausea; Z86.79 Personal history of other diseases of the circulatory system
CPT/HCPCS: 36415; 80048; 80053; 93005; 96360; 96361; 99285; 70450; 83735; 83880; 84484; 85025; 93010

== ENCOUNTER 2024-08-13 10:36 | Emergency (ER) | payer OTHER, SELFPAY ==
[2024-08-13] VITALS (28 sets, daily range): BP systolic 100–169; BP diastolic 42–75; PULSE 66–90; RESP 13–22; TEMP 36.8; O2SAT 97–100
--- NOTE | 2024-08-13 10:30 | RT.EKG_ITS ---
APPROVED REPORT Exam: Resting ECG Reason for Exam: Syncope Patient Location: E HR:85 bpm ECG Measurements Heart Rate 85 AXIS AL 133 P 30 QRSd 111 QRS 37 QT 388 T [id number] QTc 461 Conclusion Sinus rhythm...normal P axis, V-rate 60- 99 Inferior infarct, old...Q >35mS, II III aVF
--- NOTE | 2024-08-13 11:00 | DI.RAD_ITS ---
Exam(s) XR CHEST 2V PA LATERAL EXAM: XR CHEST 2V PA LATERAL CLINICAL HISTORY: lightheaded, fall TECHNIQUE: 2D digital imaging was performed of the chest. Two images were obtained. PA and lateral views were obtained. COMPARISON: CR XR CHEST 1V IN DI DEPT from 11/16/2023 FINDINGS: MEDIASTINUM: Normal. HEART: Normal. PULMONARY VASCULATURE: Normal. LUNGS: Clear. PLEURAL SPACE: No pleural effusion or pneumothorax. BONE:Within normal limits for the patient's age. OTHER FINDINGS:Normal. IMPRESSION: No acute pulmonary findings. DATA REPOSITORY: RADIATION DOSE DELIVERED:
--- NOTE | 2024-08-13 11:00 | DI.CT_ITS ---
Exam(s) CT HEAD WO EXAM: CT HEAD WO CLINICAL HISTORY: fall, struck back of head. TECHNIQUE: Imaging Protocol: Axial computed tomography images with coronal and sagittal reformatted images were created and reviewed COMPARISON: CT CT HEAD - STROKE PROTOCOL from 11/16/[address] HEAD WO from 08/08/2024 FINDINGS: Ventricles and Extra axial spaces: Normal in size and morphology for the patient's age. Hemorrhage: None. Cerebral parenchyma: There are areas of decreased attenuation in the white matter consistent with chr onic microvascular ischemic disease. No evidence of an acute territorial infarct or mass effect. Th ere is a stable old left basal gangliar lacunar infarct or prominent perivascular space. Midline shift: None. Brainstem/Cerebellum: Normal. Calvarium: Normal. Visualized Paranasal sinuses/Mastoids: Clear. Soft Tissues: Unremarkable. IMPRESSION: No acute intracranial process. RADIATION DOSE DELIVERED: 902.27mGy.cm Total DLP DATA REPOSITORY: All CT scans at this facility are submitted to the National Radiology Data Registry (NRDR) Dose Index Registry (DIR) with the [employer] (A[employer]). RADIATION OPTIMIZATION: All CT scans at this facility use at least one of these dose optimization te chniques: automated exposure control; mA and/or kV adjustment per patient size (includes targeted exa ms where dose is matched to clinical indication); or iterative reconstruction.
--- NOTE | 2024-08-13 11:12 | ED.GENADUL_ITS ---
Discharge Plan Disposition Patient Disposition: Home Condition: Stable Discharge Details Clinical Impression: Orthostatic hypotension, Hypomagnesemia, Pre-syncope, Fall, Abrasion head Primary Care Provider: Vera Stover ED Provider: Ami Hunter Home Meds and New Rx's Prescriptions: Continued ascorbic acid (vitamin C) [Vitamin C] 1,000 MG tablet 1 tab PO DAILY citalopram 10 MG tablet 40 mg PO DAILY aspirin [Aspir-Low] 81 MG tablet,delayed release (DR/EC) 1 tab PO DAILY folic acid 1 MG tablet 1 mg PO DAILY gabapentin 100 MG capsule 300 mg PO DIRECTED Patient Comments: 4 am and 4 pm metoprolol tartrate 25 MG tablet 25 mg PO DAILY finasteride 1 mg Tablet 5 mg PO DAILY atorvastatin 80 mg tablet 80 mg PO DAILY Discontinued lisinopril 20 MG tablet 10 mg PO DAILY Discharge Instructions Instructions: Orthostatic hypotension, Near Fainting (DC), Hypomagnesemia Additional Instructions: Your labs are reassuring here today. Your imaging okay shows some narrowing of one of your carotid. Please discuss this further with your primary care. Your blood pressure dropped significantly when you went from a sitting to a standing position which can cause people to become lightheaded and dizzy, may account for the symptoms you are having today. For this reason, as well as you having low blood pressure throughout your stay here, I would like for you to stop your lisinopril but please continue with your other medications. I would like for you to follow-up with your primary care next week for reevaluation and recheck of your blood pressure. If you develop any new or worsening symptoms please seek care urgently once again. Please take your time when going from a laying to sitting or sitting to standing position as this may cause you to become lightheaded and potentially fall. Referrals: Vera Stover [Primary Care Provider] - Discharge Data Discharge Date/Time-TO BE ENTERED AT DEPARTURE: 08/13/24 15:10 HPI General Date/Time Provider Initiated Documentation: 08/13/24 10:40 . Limitations to Documentation: no limitations . Information obtained by: patient, RN notes reviewed and old records reviewed . History of Present Illness 84 year old M presents to the emergency department with the chief complaint of pre syncope, dizzy, described as moderate and similar to prior episodes, Quality is described as other (no pain), Patient started experiencing this minute(s) and it has been now resolved. Immobilization improves symptom(s), Movement worsens symptoms (sitting to standing) . Patient notes denies chest pain, cough, diaphoresis, fever/chills, headaches, loss of appetite, malaise, nausea/vomiting, rash, shortness of breath, syncope and weakness. Patient did receive the following treatments prior to arrival, none Related Data Home Medications ?Medication ?Instructions ?Recorded ?Confirmed ascorbic acid (vitamin C) 1,000 mg 1 tab PO DAILY 06/18/17 08/13/24 tablet (Vitamin C) aspirin 81 mg tablet,delayed 1 tab PO DAILY 06/18/17 08/13/24 release (Aspir-Low) citalopram 10 mg tablet 40 mg PO DAILY 06/18/17 08/13/24 folic acid 1 mg tablet 1 mg PO DAILY 06/18/17 08/13/24 gabapentin 100 mg capsule 300 mg PO DIRECTED 06/18/17 08/13/24 metoprolol tartrate 25 mg tablet 25 mg PO DAILY 06/18/17 08/13/24 finasteride 1 mg tablet 5 mg PO DAILY 08/30/18 08/13/24 atorvastatin 80 mg tablet 80 mg PO DAILY 11/16/23 08/13/24 Allergies Allergy/AdvReac Type Severity Reaction Status Date / Time No Known Allergies Allergy Verified 08/13/24 10:47 General Stated Complaint: Dizzy/Sync RUPAL: 3 Review of Systems Constitutional Constitutional: Reports as per HPI, Denies chills, Denies fever(s), Denies headache(s), Denies lethargy and Denies poor appetite Eyes Eyes: Denies change in vision ENT Ears, Nose, Mouth, and Throat: Denies headache(s) Cardiovascular Cardiovascular: Reports as per HPI, Denies dyspnea and Denies dyspnea on exertion Respiratory Respiratory: Reports as per HPI, Denies chest congestion, Denies cough, Denies pain on inspiration, Denies pain with cough, Denies dyspnea and Denies dyspnea on exertion Gastrointestinal Gastrointestinal: Reports as per HPI, Denies abdominal pain, Denies diarrhea, Denies nausea and Denies vomiting Genitourinary Genitourinary: Denies system reviewed and no additional complaints, except as documented (denies change in urinary habits) Musculoskeletal Musculoskeletal: Reports as per HPI and Denies back pain Integumentary/Breasts Skin/Breast: Reports as per HPI Neurologic Neurologic: Reports as per HPI and Denies headache(s) Exam Const General: cooperative, healthy appearing, comfortable, no acute distress and well developed Nutritional Appearance: average body habitus and well nourished Orientation: alert, awake and oriented x3 HENHI Head: normal to inspection and abrasion (posterior, 2cm, linear, no bleeding or surrounding swelling) Face and sinus: normal facial exam Mouth: moist mucous membranes Throat: posterior oropharynx normal, tonsils normal and uvula midline Eyes General: appearance normal, both eyes and all related structures Neck Neck: normal visual inspection and full ROM Chest Chest: normal inspection of the chest, normal palpation of entire chest wall and no crepitus Resp Effort & Inspection: normal respiratory effort, able to speak in complete sentences and no respiratory distress Auscultation: clear to auscultation bilaterally, no rales, no rhonchi and no wheezes Cardio Rate: regular rate Rhythm: regular rhythm Heart Sounds: S1 normal and S2 normal Back/Spine/Pelvis Cervical Spine: normal cervical lordosis, cervical ROM normal, No pain with cervical ROM, No cervical spasm, No cervical spinal tenderness and No step off deformity Thoracic/Lumbar Spine: thoracic and lumbar spine normal to inspection Skin Trauma: abrasion Neuro General: patient alert, patient awake and patient oriented x3 Cranial Nerves: CN's II-XI intact bilaterally Cognition: normal cognition Speech: speech normal Gait: normal gait Motor: muscle tone normal throughout, strength 5/5 throughout and no pronator drift Extrem General: normal to inspection, capillary refill normal, no pedal edema, no calf tenderness and normal gait Course Vital Signs Vital signs: Vital Signs Temperature 36.8 C 08/13/24 10:45 Pulse 82 08/13/24 10:45 Respiratory Rate 16 08/13/24 10:45 Blood Pressure 123/64 08/13/24 10:45 Pulse Oximetry 98 08/13/24 10:45 Temperature 36.8 C 08/13/24 10:45 Pulse 82 08/13/24 10:45 Respiratory Rate 16 08/13/24 10:45 Blood Pressure 123/64 08/13/24 10:45 Pulse Oximetry 98 08/13/24 10:45 Pain Level 0 08/13/24 10:45 Medical Decision Making Patient is a pleasant 84-year-old gentleman with past medical history significant for depression, hyperlipidemia, hypertension, NE, with stent placement, vertigo, presenting for chief complaint of dizziness and fall. Patient was seen here 1 week ago for the same, diagnosed with vertigo. Patient reports that he has been having dizziness when going from sitting to standing for the past month. He reports that today, while visiting his at a halfway, he had 1 of these episodes when he was going to another table he suddenly became lightheaded. Reports that he went to go and sit and lost his balance falling and struck the back of his head against somebody's wheelchair. He denies any loss of consciousness. Said that he states that he suffered an abrasion but has not had any persistent headaches. Patient reports that he does have a follow-up appointment with neurology coming up. When he was here most recently, patient was noted to have PERCY. Orthostatics were normal. They initially planned for patient to be admitted for follow-up MRI while inpatient but instead, he wanted to leave. On exam, patient appears nontoxic. He is resting comfortably no acute distress. Hemodynamically stable. Patient does have a linear superficial abrasion posterior scalp with no deep structure involvement, no evidence to suggest skull fracture, basilar skull fracture. Cranial nerves are intact. Patient does have issues with balance based on previous note as well as patient description, this does sound to be chronic. He is now ambulating with a cane. Did not note any focal weakness at this point. Normal cardiac exam. He denies any chest pain or shortness of breath. No palpitations. No true syncopal episodes rather, patient just becomes very lightheaded and presyncopal. As patient struck head, will obtain CT to evaluate for bleeding. Based on his symptoms and MARKELL, less likely. No c-spine tenderness. Neurologically intact. Will obtain orthostatics, his description certainly sounds like this. While his last episode was diagnosed with vertigo, his symptoms today seem more like pre- syncope and associated with standing rapidly. ECG reveiwed by Dr. Roland, NSR, rate 85, no acute ischemic changes. CT reviewed by radiologist with no acute intracranial process. CXR without acute abnormality. Labs reviewed. No leukocytosis. Stable H&H. Magnesium low at 1.5, replenished this here. Creatinine 1.5 which appears to actually be slightly improved compared to patient's more recent assessment. Troponin within normal limits x 2. Patient's blood pressure has been slightly low while on the monitor today, 106/45. He is not actively symptomatic with this. However, his orthostatics were positive going from 130 while sitting to 100 standing. I am wondering if this may be the underlying cause of his current symptoms. He also was supposed to have an outpatient MRI or CTA to evaluate the vascular flow to his head, was not eligible on his most recent visit due to his GFR. GFR is much improved today 45, able to undergo the CTA. Will get this now, given his history of kidney dysfunction, we will give a small bolus of fluids. Will also augment his magnesium which is low at 1.5. CTA reviewed by radiologist. Concerning for atherosclerotic calcification at the origin of the left internal carotid 50 to 75% stenosis. Otherwise, no large vessel occlusion or significant stenosis of the CT angiography of the head, no acute intracranial process. I did recommend he discuss this atherosclerosis further with his primary care, patient typically [facility] as he may need to be followed with a vascular surgeon. However, I still am concerned that the orthostatic hypotension is what may have been causing his symptoms today. After reviewing his medications, I discussed with the patient we will hold his lisinopril. I advised that he continue with metoprolol. Given the patient's history of NE, no history of diabetes, I feel that the metoprolol is more reported to maintain at this point. However, I do want the patient to have more normal blood pressure and hopefully stopping the lisinopril will be out of for him to feel improved. I did encourage hydration. We did discuss supportive care, moving slowly and helping to prevent these episodes recurring in the future. Strict return precautions were discussed. He does have upcoming appointment with neurology and I also advise follow-up with primary care. All of his questions and concerns were addressed and he is in agreement this plan. This documentation was generated using [employer] system, please disregard any oddities of phrase or misspellings. Quality:SDOH Health Related Social Needs: No Data to Display PFSH All Active Problems (Updated 08/13/24 @ 14:57 by ALDA Plummer) Abrasion head (Acute) Fall (Acute) Pre-syncope (Acute) Hypomagnesemia (Acute) Orthostatic hypotension (Acute) Seizure disorder (Chronic) BPH (benign prostatic hyperplasia) (Chronic) Vertigo (Acute) CAD S/P percutaneous coronary angioplasty (Acute) Medical History (Updated 08/13/24 @ 14:57 by ALDA Plummer) Depression Hyperlipemia HTN (hypertension) Myocardial infarction Surgical History History of coronary artery stent placement Social History Smoking/Tobacco Use Status: Former Tobacco Use Smoking risk assessment performed?: Yes Alcohol Intake: current Alcohol Intake frequency: a few times a month Drug use: Never Substance use type: does not use Housing: apartment Do you feel safe at home: Yes Do you feel safe in your relationship?: Yes
[2024-08-13 11:56] LABS: Abs Immature Grans 0.02 10^3/uL (0.0-0.06); Absolute Basophil Count 0.04 10^3/uL (0.0-0.2); Absolute Eosinophil Count 0.12 10^3/uL (0.0-0.7); Absolute Lymphocyte Count 1.83 10^3/uL (1.2-3.4); Absolute Monocyte Count 1.02 10^3/uL (0.1-0.8); Basophils % 0.5 %; Eosinophils % 1.4 %; HCT 40.2 % (40.0-50.0); HGB 13.6 g/dL (13.5-17.5); Immature Grans % 0.2 %; Lymphocytes % 20.7 %; MCHC 33.8 % (32.0-36.0); MCV 95 fL (80-95); MPV 10.6 fL (8.0-11.0); Monocytes % 11.6 %; Neutrophils % 65.6 %; Platelet Count 235 10^3/uL (130-400); RBC 4.25 10^6/uL (4.36-5.78); RDW 12.2 % (11.8-14.1); RDW-SD 42.4 fL; WBC 8.83 10^3/uL (4.4-10.8)
[2024-08-13 12:18] LABS: ALT 35 U/L (16-63); AST 29 U/L (15-37); Albumin 3.9 g/dL (3.4-5.0); Alkaline Phosphatase 104 U/L (46-116); Anion Gap 10.6 mmol/L (3-11); BUN 29 mg/dL (7-18); Bilirubin, Total 0.92 mg/dL (0.2-1.0); CO2 24.4 mmol/L (21.0-32.0); CREATININE 1.5 mg/dL (0.70-1.30); Calcium 9.3 mg/dL (8.5-10.1); Chloride 107 mmol/L (98-107); Estimated GFR 45.62 (mL/min/1.73m2); Glucose 92 mg/dL (74-106); Magnesium 1.5 mg/dL (1.8-2.4); Potassium 4.2 mmol/L (3.5-5.1); Sodium 142 mmol/L (136-145); TSH 2.71 uIU/mL (0.36-3.74); Troponin I 25 ng/L (<or=76)
--- NOTE | 2024-08-13 13:00 | DI.CT_ITS ---
Exam(s) CT BRAIN NECK CTA EXAM: CT BRAIN NECK CTA CLINICAL HISTORY: sycope. TECHNIQUE: Imaging Protocol: Axial CT angiography was performed with multi-slice acquisition and mu lti-planar and/or 3D reconstructions. CONTRAST MATERIAL: Intravenous: Omnipaque 350 contrast volume:70 mL COMPARISON: CT CT HEAD WO from 08/13/2024 FINDINGS: CT Head w: Ventricles and Extra axial spaces: Normal in size and morphology for the patient's age. Hemorrhage: None. Cerebral parenchyma: There are areas of decreased attenuation in the white matter consistent with chr onic microvascular ischemic disease. No acute mass effect or findings to suggest an acute territoria l infarct are present. There is again seen a hypodensity in the left basal ganglia which may represe nt a prominent perivascular space or an old lacunar infarct. Midline shift: None. Brainstem/Cerebellum: Normal. Calvarium: Normal. Visualized Paranasal sinuses/Mastoids: Clear. Soft Tissues: Unremarkable. Enhancement: Unremarkable. CTA Neck W: Common Carotid: Right: No dissection, occlusion or significant stenosis. Atherosclerotic calcification is present. Left: No dissection, occlusion or significant stenosis. Atherosclerotic calcification is present wit h less than 50 percent stenosis. External Carotid: Right: No occlusion or significant stenosis. There is atherosclerotic calcification present at the o rigin but less than 50 percent narrowing is noted. Left: No occlusion or significant stenosis. There is atherosclerotic calcification at the origin wit h approximately 50 percent narrowing. Internal Carotid: Right: No dissection, occlusion or significant stenosis. There is atherosclerotic calcifications see n proximally with a proximally 50 percent narrowing. Left: No dissection or occlusion. Atherosclerotic calcification is seen proximally with 50-75 perce nt narrowing present. Vertebral Artery: Right: No dissection, occlusion or significant stenosis. Atherosclerosis is seen distally without si gnificant stenosis. Left: No dissection, occlusion or significant stenosis. There is mild atherosclerosis present. No s ignificant stenosis. Lung Apices: Centrilobular emphysematous changes are present. Calcified granulomas are present. Bones: Within normal limits for the patient's age. Soft Tissues: Normal. Thyroid gland: Unremarkable. CTA Brain W: Internal Carotid Arteries: No evidence of an aneurysm, occlusion or significant stenosis. Atheroscle rotic calcification is present bilaterally. Anterior Cerebral Arteries: Right: No aneurysm, occlusion or significant stenosis. Left: No aneurysm, occlusion or significant stenosis. Middle Cerebral Arteries: Right: No aneurysm, occlusion or significant stenosis. Left: No aneurysm, occlusion or significant stenosis. Posterior Cerebral Arteries: Right: No aneurysm, occlusion or significant stenosis. Left: No aneurysm, occlusion or significant stenosis. Vertebral Arteries: Right: No aneurysm, occlusion or significant stenosis. Left: No aneurysm, occlusion or significant stenosis. Basilar Artery: No aneurysm, occlusion or significant stenosis. IMPRESSION: 1. No large vessel occlusion or significant stenosis on the CT angiography of the head. 2. No acute intracranial process. 3. Atherosclerotic calcification at the origin of the left internal carotid artery with 50-75 percent stenosis. RADIATION DOSE DELIVERED: 1,443.85mGy.cm Total DLP DATA REPOSITORY: All CT scans at this facility are submitted to the National Radiology Data Registry (NRDR) Dose Index Registry (DIR) with the [employer] (ACR). RADIATION OPTIMIZATION: All CT scans at this facility use at least one of these dose optimization te chniques: automated exposure control; mA and/or kV adjustment per patient size (includes targeted exa ms where dose is matched to clinical indication); or iterative reconstruction.
[2024-08-13] MEDS: Magnesium Gluconate 500 MG TAB PO (13:32)
[2024-08-13] MEDS: Normal Saline 500 ML IV (13:32)
[2024-08-13] MEDS: Normal Saline - Diluent 50 ML VIAL IJ (13:38)
[2024-08-13] MEDS: Omnipaque 350 MG/ML 100 ML BTL 70 ML IJ (13:39)
[2024-08-13 13:47] LABS: Bilirubin Small (Negative); Blood Negative (Negative); Clarity Clear (Clear); Glucose Negative (Negative); Ketones 15 mg/dL (Negative); Leukocyte Esterase Negative (Negative); Nitrite Negative (Negative); Specific Gravity 1.025 (1.005-1.025); pH 5.5 (5-8)
[2024-08-13 13:59] LABS: Bacteria Few HPF (Negative); C & S Indicated? No; Casts Negative LPF (Negative); Crystals Negative HPF (Negative); Epithelial Cells Few HPF (Negative); Mucus Trace (Negative); RBC 0-2 HPF (0-2); WBC 0-2 HPF (0-5)
[2024-08-13 14:42] LABS: Troponin I 10 ng/L (<or=76)
== END 2024-08-13 15:10 | disposition home or self-care (01) ==
PROVIDERS: Emergency Provider Physician Assistant; PCP Physician Assistant
DX: S00.81XA Abrasion of other part of head, initial encounter (principal); I95.1 Orthostatic hypotension; E83.42 Hypomagnesemia; R55 Syncope and collapse; I10 Essential (primary) hypertension; E78.5 Hyperlipidemia, unspecified; I25.2 Old myocardial infarction; Z95.5 Presence of coronary angioplasty implant and graft; W18.39XA Other fall on same level, initial encounter; Y93.01 Activity, walking, marching and hiking; Y92.128 Other place in nursing home as the place of occurrence of the external cause
CPT/HCPCS: 36415; 70496; 70498; 80053; 93005; 96360; 99285; 70450; 71046; 81003; 81015; 83735; 84443; 84484; 85025; 93010; J3490

== ENCOUNTER 2024-12-20 08:43 | Outpatient (CLI) | payer OTHER, SELFPAY ==
--- NOTE | 2024-12-20 06:00 | DI.RAD_ITS ---
Exam(s) XR PAIN CLINIC LUMBAR SP 2V EXAM: XR PAIN CLINIC LUMBAR SP 2V CLINICAL HISTORY: DX: Lumbar Radiculopathy TECHNIQUE: 2D and realtime digital imaging was performed. CONTRAST MATERIAL: Refer to procedure report. COMPARISON: No exams were available for comparison FINDINGS: Fluoroscopy was provided for Dr. Moscoso during the performance of a lumbar epidural steroid injection. Please refer to the procedure report for complete details. Ka,r=16.6 mGy IMPRESSION: RADIATION DOSE DELIVERED: 0.0 0.0 0
[2024-12-20 08:57] VITALS: BP 97/56; PULSE 85; RESP 20; TEMP 36.3; O2SAT 98
[2024-12-20 09:25] VITALS: BP 138/63; RESP 16; O2SAT 96
[2024-12-20 09:30] VITALS: BP 137/65; RESP 16; O2SAT 95
--- NOTE | 2024-12-20 09:33 | PDOC.PAIN ---
Date of service: 12/20/24 Time of Service: 09:33 Pain Managment Procedure Note Procedure Note Procedure Note: PROCEDURE NOTE LUMBAR EPIDURAL STEROID INJECTION Date of Service: December 20, 2024 Patient:Blake Nino? Provider: Mirza Moscoso DO, MPH Blake Longo has been referred to the [facility] for a lumbar epidural steroid injection. Pre-operative diagnosis: Lumbosacral Radiculopathy ICD-10 M54.16 Post-operative diagnosis: Same Pre-Procedure Pain: VAS= 5 /10 Comments: I previously evaluated him in the office. He has multilevel spinal stenosis, likely causing his leg pain. Blake was interviewed and the medical record was reviewed.? There were no medical, pharmacologic, radiographic or other structural contraindications to attempting fluoroscopically guided Lumbar epidural steroid injection.? Risks, potential side effects, indications, and potential benefits of the procedure were reviewed with Blake.? Questions and concerns were addressed.? After it was clear that Blake was fully informed about the procedure, the printed consent form was signed by the patient and myself.? Blake was placed in the prone position on the fluoroscopy table and automated blood pressure cuff and pulse oximeter applied. The skin entry point for entering/approaching the epidural space for the lumbar epidural steroid injection was marked. Following thorough chlorhexadine preparation of the skin and draping and 1% lidocaine infiltration of the skin entry point and subcutaneous tissues, an 18 gauge Touhy needle was placed and advanced under fluoroscopic guidance and with loss of resistance technique into the L5-S1 epidural space. Needle tip placement and depth were aided and confirmed by fluoroscopy. There was no paresthesia or return of blood or CSF through the needle. 1 mls of Omnipaque 240 was injected with clear epidural spread confirmed with fluoroscopy. 80 mg of Depo-Medrol was? injected. This was followed by 1 ml of preservative-free normal saline to flush the steroid out of the needle. There was no unusual discomfort expressed by Blake. The needle was withdrawn without difficulty. (49 mls of Omnipaque was wasted) Blake was observed and was without hemodynamic, neurologic, or allergic reactions.? Fluoroscopic images were digitally archived. Blake's vital signs were stable throughout the procedure and were as recorded in nursing records. Follow up plans and appointments were discussed with Blake. Post procedure instruction was given as documented in nursing records and having met discharge criteria Blake was discharged from the [facility]. COMMENTS: No apparent complications. Post-procedure pain: VAS= 3/10. Blake to contact [facility] as needed. If at least 50% improvement in pain and/or function for at least 3 months is achieved, this procedure can be repeated. I personally performed this entire procedure. MIRZA MOSCOSO DO, MPH ABPMR-subspecialty board certification in Pain Medicine [facility] Coding Conscious Sedation used for procedure: No CPT Codes: Inj Spine L/S w/Imaging - 31906 ([id number] ~G) Additional Codes: Date of Service (39493) Date of service: 12/20/24
[2024-12-20 09:35] VITALS: BP 89/46; RESP 16; O2SAT 96
[2024-12-20 09:44] VITALS: BP 108/57
[2024-12-20] MEDS: Omnipaque 240 MG/ML 50 ML BTL IJ (09:44)
[2024-12-20] MEDS: methylPREDNISolone ACETATE 40 MG/ML VIAL IJ (09:45)
[2024-12-20] MEDS: Epidural Tray 1 EACH MC (09:45)
== END 2024-12-20 08:44 | disposition home or self-care (01) ==
LOC: PC 08:43
PROVIDERS: PCP Physician Assistant; Visit Provider Preventive Medicine Occupational Medicine
DX: M54.16 Radiculopathy, lumbar region (principal)
CPT/HCPCS: 62323; 72100; J1010; Q9967